=== PATIENT | female | born 2000 | race Caucasian/White ===

== ENCOUNTER 2019-08-10 19:28 | Emergency (ER) | payer SELFPAY ==
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
[2019-08-10 19:37] VITALS: BP 124/84; PULSE 91; RESP 16; TEMP 36.7; O2SAT 99; BMI 20.7
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
[2019-08-10 19:57] VITALS: PULSE 73; RESP 16; O2SAT 100
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
[2019-08-10 20:01] LABS: Basophils % 0.1 %; Eosinophils # 0.1 10^3/uL (0.0-0.8); Eosinophils % 0.7 %; Hematocrit 36.2 % (37.0-47.0); Hemoglobin 11.1 g/dL (11.5-15.3); Lymphocytes # 1.8 10^3/uL (1.5-6.5); Lymphocytes % 25.4 %; Mean Corpuscular HGB Conc 30.7 g/dL (30.0-36.0); Mean Corpuscular Hemoglobin 25.3 pg (28.0-34.0); Mean Corpuscular Volume 82.5 fL (81-99); Mean Platelet Volume 12.1 fL (7.4-10.4); Monocytes # 0.4 10^3/uL (0.2-0.9); Monocytes % 5.8 %; Neutrophils # 4.8 10^3/uL (1.8-8.0); Neutrophils % 67.7 %; Nucleated Red Blood Cells % 0 %; Platelet Count 312 10^3/cmm (130-400); Red Blood Count 4.39 10^6/uL (4.1-5.3); Red Cell Distribution Width 13.9 % (12.1-15.1); White Blood Count 7.1 10^3/uL (4.5-13.0)
[2019-08-10] MEDS: sodium chloride 0.9% 500 ML 999 ML IV (20:01)
[2019-08-10 20:11] LABS: HCG Qualitative Urine. Negative (Negative)
[2019-08-10 20:18] LABS: Alanine Aminotransferase 64 U/L (0-33); Albumin Level 4.9 g/dL (3.5-5.2); Alkaline Phosphatase 76 IU/L (35-105); Anion Gap 15.6 (5-19); Aspartate Amino Transferase 92 U/L (0-32); Blood Urea Nitrogen 8 mg/dL (6-20); Carbon Dioxide 24 mmol/L (22-29); Chloride 103 mmol/L (98-107); Globulin 2.5 g/dL (1.3-4.6); Glomerular Filtration Rate 106.7 mL/min (90-130); Glucose 108 mg/dL (74-109); Potassium 3.6 mmol/L (3.5-5.1); Sodium 139 mmol/L (136-145); Total Bilirubin 0.3 mg/dL (0.15-1.2); Total Protein 7.4 g/dL (6.6-8.7)
[2019-08-10] MEDS: iohexol 300 mg/mL 100 mL Btl 95 ML IV (21:14)
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
[2019-08-10 23:00] VITALS: BP 120/58; PULSE 79; RESP 15; O2SAT 97
[2019-08-11 09:05] LABS: Urine Appearance Clear (CLEAR); Urine Color Straw (Yellow)
[2019-08-11 09:06] LABS: Add Urine Microscopic? YES; Bilirubin Urine Neg (NEGATIVE); Blood Urine 2+ (Negative); Glucose Urine UA Norm (Normal); Ketones Urine Negative (Negative); Leukocyte Esterase Urine Negative (Negative); Nitrate Urine Negative (Negative); Protein Urine Neg (Negative); Urobilinogen Urine Norm (Negative)
[2019-08-11 09:12] LABS: Add Urine Culture? No; Bacteria Urine TRACE; RBC Urine 0-4 /hpf (0-2); Squamous Epithelial Cell Urine 0-4 (0-5)
--- NOTE | 2019-08-11 10:20 | DCPLANNER ---
manager of software development had message to schedule a follow up appointment for patient with Dr. Swan at [facility]. manager of software development called the clinic, spoke with Natasha, a follow up appointment was scheduled for today, Friday, August 11, 2019 at 3:15. Clinic will call patient with appointment information.
--- NOTE | 2019-08-11 10:22 | DCPLANNER ---
exhibits manager had message to schedule a follow up appointment for patient with ortho. exhibits manager called the ortho clinic, spoke with Pat, gave clinic patients information. exhibits manager was told that patients information would be printed and reviewed. Clinic will call case fitter and patient with appointment information.
--- NOTE | 2019-08-17 14:28 | DCPLANNER ---
Patient did attend the appointment scheduled for 08.11.19 with [facility].
--- NOTE | 2019-08-17 16:10 | DCPLANNER ---
airline manager spoke with Pat from ortho, was told that patient can follow up with primary care physician.
== END 2019-08-10 23:00 | disposition home or self-care (01) ==
PROVIDERS: Emergency Provider Emergency Medicine; Family Provider Pediatrics Adolescent Medicine; PCP Pediatrics Adolescent Medicine
DX: S80.10XA Contusion of unspecified lower leg, initial encounter (principal); V89.2XXA Person injured in unspecified motor-vehicle accident, traffic, initial encounter
CPT/HCPCS: 36415; 70450; 70486; 71260; 72125; 73590; 73600; 73610; 73620; 73630; 74177; 80053; 81003; 81025; 85025; 96360; 99283; E0114; J7040; Q9967

== ENCOUNTER 2019-11-06 23:21 | Emergency (ER) | payer OTHER, MEDICAID, SELFPAY ==
[2019-11-06 23:28] VITALS: BP 112/73; PULSE 71; RESP 16; TEMP 36.9; O2SAT 99; BMI 20.5
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
--- NOTE | 2019-11-06 23:47 | ED_ITS ---
HPI - Chest Pain General: Chief Complaint: Chest Pain Stated Complaint: CP/BACK PAIN Time Seen by Provider: 11/06/19 23:27 History of Present Illness: HPI narrative: Patient states that she has had chest pain center of her chest most of the day today it hurts to take in a deep breath it hurt from front to back hurts to touch and hurts to move. Denies nausea and vomiting gallbladder type symptoms denies any reflux. 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 She denies any fever or covid type symptoms. MD complaint: chest pain Onset (ago): hour(s) Timing of current episode: constant Prior episodes: No Pain location: substernal Pain radiation: back Quality: aching Relieving factors: remaining still Exacerbating factors: inspiration Associated symptoms: Reports no associated symptoms; Deny abdominal pain, dyspnea, fever(s), nausea or vomiting Review of Systems Const: Denies: fever, chills or body aches Eyes: Denies: change in vision or blurry vision ENMT: Denies: throat pain or nasal congestion Card: Reports: chest pain; Denies: shortness of breath on exertion Resp: Denies: shortness of breath, productive cough or non-productive cough GI: Denies: abdominal pain, nausea or vomiting Musc: Denies: extremity pain Skin/Breast: Denies: rash Neuro: Denies: headache Psych: Denies: anxiety or depression Alfonso/Lymph: Denies: easy bruising PFSH ED PFSH: Social History Smoking and tobacco status: never smoked Alcohol intake: never Desire information about substance/drug rehabilitation?: No (Reports history of marijuana use) Lives independently: Yes Household members: family Marital status: Single Current occupational status: unemployed History of recent travel: No Female Reproductive History: Date of last menstrual period: 11/07/19 Physical Exam Const: COMMON NORMALS: no apparent distress, average body habitus and oriented x3 HENMT: COMMON NORMALS: normocephalic HEAD & SCALP: normal to inspection and normocephalic FACE & SINUS: normal facial exam Eye: COMMON NORMALS: conjunctivae normal GENERAL EYE: normal appearance of both eyes CONJUNCTIVA: Yes conjunctivae normal Neck/C-Spine: COMMON NORMALS: no JVD Chest: COMMONS NORMALS: inspection of chest normal Resp: COMMON NORMALS: normal respiratory effort and clear to auscultation bilaterally AUSCULTATION: clear to auscultation bilaterally Cardio: COMMON NORMALS: no JVD, regular rate and regular rhythm RATE: regular rate RHYTHM: regular rhythm GI: COMMON NORMALS: normal to inspection, nondistended, normoactive bowel sounds Extremity: COMMON NORMALS: normal to inspection and full ROM Neuro: COMMON NORMALS: oriented x3 Course Vital Signs: Vital signs: Vital Signs Temperature 98.5 F 11/06/19 23:28 Pulse Rate 71 11/06/19 23:28 Respiratory Rate 16 11/06/19 23:28 Blood Pressure 112/73 11/06/19 23:28 Pulse Oximetry 99 11/06/19 23:28 MDM - Chest Pain EKG Data^: EKG 1: EKG interpretation date: 11/06/19 EKG interpretation time: 23:48 Interpretation: Sinus rhythm 68 bpm CO intervals 143 ms QRS durations [address] segments look appropriate Discharge Plan Discharge Patient Disposition: Home, Self-Care Clinical Impression: Acute costochondritis Condition: Stable Prescriptions: No Action No Known Home Medications RF: 0 Referrals: Brandie Rasheed MD [Primary Care Provider] - Discharge Diet: Usual diet Discharge Activity: Increase activity as tolerated Stand Alone Forms: Work/School Release Coding Level of Care Code ED 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
[2019-11-07 00:48] VITALS: BP 116/68; PULSE 79; RESP 18; O2SAT 99
--- NOTE | 2019-11-07 00:55 | W.ED.CHESTPA ---
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 Has not tried any [id number] medicines today Pain location: substernal Quality: aching Relieving factors: remaining still Exacerbating factors: inspiration Associated symptoms: Deny abdominal pain, dyspnea, fever(s), nausea or vomiting Review of Systems Const: Denies: fever, chills or body aches Eyes: Denies: change in vision or blurry vision ENMT: Denies: throat pain or nasal congestion Card: Reports: chest pain (Hurts with deep inspiration midsternal hurts to the back with inspiration); Denies: shortness of breath on exertion Resp: Denies: shortness of breath, productive cough or non-productive cough GI: Denies: abdominal pain, nausea or vomiting Musc: Denies: extremity pain Skin/Breast: Denies: rash Neuro: Denies: headache Psych: Denies: anxiety or depression Alfonso/Lymph: Denies: easy bruising PFSH ED PFSH: Social History Smoking and tobacco status: never smoked Alcohol intake: never Desire information about substance/drug rehabilitation?: No (Reports history of marijuana use) Lives independently: Yes Household members: family Marital status: Single Current occupational status: unemployed History of recent travel: No Female Reproductive History: Date of last menstrual period: 11/07/19 Physical Exam Const: COMMON NORMALS: no apparent distress, average body habitus and oriented x3 HENMT: COMMON NORMALS: normocephalic HEAD & SCALP: normal to inspection and normocephalic FACE & SINUS: normal facial exam Eye: COMMON NORMALS: conjunctivae normal GENERAL EYE: normal appearance of both eyes CONJUNCTIVA: Yes conjunctivae normal Neck/C-Spine: COMMON NORMALS: no JVD Chest: COMMONS NORMALS: inspection of chest normal; negative for palpation of chest normal (Patient has costochondritis type tenderness across midsternal area radiating out tender with palpation no swelling no no bruising breath sounds are normal no pain in the back) Resp: COMMON NORMALS: normal respiratory effort and clear to auscultation bilaterally AUSCULTATION: clear to auscultation bilaterally Cardio: COMMON NORMALS: no JVD, regular rate and regular rhythm RATE: regular rate RHYTHM: regular rhythm GI: COMMON NORMALS: normal to inspection, nondistended, normoactive bowel sounds and soft to palpation INSPECTION: Yes normal to inspection AUSCULTATION: Yes normoactive bowel sounds PALPATION: Yes soft, No tender and No guarding PERCUSSION: normal to percussion Extremity: COMMON NORMALS: normal to inspection and full ROM Neuro: COMMON NORMALS: oriented x3 Course Vital Signs: Vital signs: Vital Signs Temperature 98.5 F 11/06/19 23:28 Pulse Rate 79 11/07/19 00:48 Respiratory Rate 18 11/07/19 00:48 Blood Pressure 116/68 11/07/19 00:48 Pulse Oximetry 99 11/07/19 00:48 Discharge Plan Discharge Patient Disposition: Home, Self-Care Clinical Impression: Acute costochondritis Condition: Stable Prescriptions: No Action No Known Home Medications RF: 0 Discharge Orders: Discharge Order (Routine); Ordered 11/07/19 Ordered By: Maurizio Bolanos Referrals: Brandie Rasheed MD [Primary Care Provider] - Discharge Diet: Usual diet Discharge Activity: Increase activity as tolerated Patient Instructions: Costochondritis (ED) Activity Restrictions/Additional Instructions: Follow-up with medical provider as directed. Take [id number] ibuprofen as directed. Return to the ER or your medical provider if condition worsens. Please read and understand discharge instructions. If any questions ask please. They off work at least 2 days. 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
== END 2019-11-07 00:49 | disposition home or self-care (01) ==
PROVIDERS: Emergency Provider Nurse Practitioner Family; Family Provider Pediatrics Adolescent Medicine; PCP Pediatrics Adolescent Medicine
DX: M94.0 Chondrocostal junction syndrome [Tietze] (principal)
CPT/HCPCS: 12345; 71045; 99281; 99283

== ENCOUNTER 2020-01-18 09:47 | Outpatient (CLI) | payer OTHER, SELFPAY ==
[2020-01-18 10:24] LABS: HCG, Serum Qual Positive (Negative)
== END 2020-01-18 09:48 | disposition home or self-care (01) ==
LOC: LAB 09:52
PROVIDERS: PCP Pediatrics Adolescent Medicine; Visit Provider Pediatrics Adolescent Medicine
DX: Z32.01 Encounter for pregnancy test, result positive (principal)
CPT/HCPCS: 81025; 84703

== ENCOUNTER 2020-09-12 10:29 | Emergency (ER) | payer MEDICAID, SELFPAY ==
[2020-09-12 10:54] VITALS: BP 103/68; PULSE 108; RESP 16; TEMP 36.8; O2SAT 98; BMI 19.7
[2020-09-12 11:00] VITALS: BP 105/62; PULSE 86; RESP 16; O2SAT 98
--- NOTE | 2020-09-12 11:03 | US_ITS ---
WS: [id number] EARLY OBSTETRICAL ULTRASOUND (<14 WEEKS). HISTORY: ; bleeding; cramping COMPARISON: None available. Single intrauterine gestational sac is identified. Within the gestational sac is abnormal yolk sac wh ich is enlarged measuring 6 mm. There is also a crown-rump length with no cardiac activity. [place]-rum p length is displaced from the yolk sac. [place]-rump length corresponds to a gestation of 6 weeks 6 days. Mean gestational sac diameter of 2.9 cm corresponds to a gestation of 8 weeks and 2 days. Uterus is retroverted. Normal size LEFT ovary with small follicles. Hypoechoic area with increased peripheral vascularity wi thin the RIGHT ovary is probably corpus luteum. US/US OB <=14 wk fetus w transvag IMPRESSION: 1. Intrauterine gestational sac contains a slightly enlarged yolk sac and a fe rigoberto pole. There is no cardiac activity identified. [place]-rump length correspond s to gestation of 6 weeks and 6 days. Favor this is probably an embryonic demis e. For confirmation short-term follow-up ultrasound can be obtained. 2. Gestational sac size and crown-rump length are discordant.
--- NOTE | 2020-09-12 11:03 | ED_ITS ---
HPI - Female Genitourinary General: Chief complaint: Vaginal Bleeding Stated complaint: ABD pain Time Seen by Provider: 09/12/20 10:54 Source: patient and family Mode of arrival: ambulatory Limitations: no limitations History of Present Illness: HPI Narrative: Patient is a 20-year-old female who presents to ED today with a complaint of pelvic cramping, abdominal pain and vaginal bleeding that began approximately 4 days ago. Patient tells me she believes she is currently approximately 7 weeks . She has had positive home tests. has never been confirmed in a provider office. She states cramping has slowly worsened since onset and is now complaining of allover abdominal pain. She quantifies bleeding as taking several hours to soak a pad. She is not having any other vaginal discharge or itching. LMP was near the end of June. This would make patient a . Patient does not complain of any urinary symptoms. She reports some mild constipation. She has not been running fevers. MD elicited complaint: vaginal bleeding, pelvic pain and possible miscarriage Onset (ago): day(s) Severity: severe Severity scale (1-10): 9 Quality of pain: cramping Consistency: constant Vaginal discharge: none Vaginal bleeding: moderate and clots Exacerbating factors: none Relieving factors: none Associated symptoms: Reports abdominal pain and nausea; Deny headache(s) or vaginal discharge Patient : Yes Possible : at home test positive Date of Last Menstrual Period: 07/19/20 Review of Systems Const: Denies: fever(s), chills, body aches, fatigue or malaise Eyes: Denies: change in vision Card: Denies: chest pain Resp: Denies: dyspnea GI: Reports: abdominal pain, nausea and constipation; Denies: vomiting, heartburn, hematochezia or melena : Reports: vaginal bleeding and pelvic pain; Denies: flank pain, difficulty voiding, dysuria, urinary frequency, urinary urgency, urinary hesitancy, genital lesions, genital pruritis, vaginal odor or vaginal discharge Musc: Denies: neck pain or back pain Skin/Breast: Denies: rash Neuro: Denies: headache(s) PFS ED PFSH: Medical History (Updated 09/12/20 @ 13:52 by SANTINO Fontana) Patient denies medical problems Denies history of: hypertension, diabetes, heart, lung, liver, kidney, thyroid, bleeding problems, clotting problems, or genital herpes Surgical History No history of previous surgery Family History Father Hypertension Grandfather Diabetes Maternal Hyperlipidemia maternal Grandmother Diabetes Paternal Stroke Maternal great grandmother Breast cancer Maternal great grandmother Ovarian cancer maternal great grandmother Uterine cancer maternal great grandmother Colon cancer maternal Family/Other Diabetes Paternal aunt Denies family history of Heart disease Thyroid condition Social History Smoking and tobacco status: never smoked Alcohol intake: never Desire information about substance/drug rehabilitation?: No (Reports history of marijuana use) Lives independently: Yes Household members: family Marital status: Single Current occupational status: unemployed History of recent travel: No Female Reproductive History: Date of last menstrual period: 07/19/20 Physical Exam Const: COMMON NORMALS: no acute distress, average body habitus, patient oriented x3, no limitations, healthy appearing, alert and well nourished GENERAL APPEARANCE: cooperative ORIENTATION/CONSCIOUSNESS: Yes awake, Yes oriented to person, Yes oriented to place and Yes oriented to time HENMT: COMMON NORMALS: normocephalic and atraumatic HEAD & SCALP: normocephalic and atraumatic Resp: COMMON NORMALS: normal respiratory effort and clear to auscultation bilaterally AUSCULTATION: clear to auscultation bilaterally Cardio: COMMON NORMALS: regular rate and regular rhythm RATE: regular rate RHYTHM: regular rhythm GI: COMMON NORMALS: Normal to inspection, nondistended, normoactive bowel sounds present, Soft to palpation, No hepatosplenomegaly present and no masses PALPATION: Yes Soft to palpation, Yes Tenderness to palpation present (GI) (reports pain throughout abdomen but mostly to lower pelvis ), Yes Guarding due to palpation present (GI) and Yes No hepatosplenomegaly present : COMMON NORMALS: Yes no CVA tenderness, Yes normal external appearance, Yes normal appearance of the vagina and Yes normal appearance of the cervix BLADDER/KIDNEY EXAM: Yes no CVA tenderness SPECULUM EXAM - VAGINA: No tissue present in vagina and Yes other (small amount of dark red blood in vaginal vault ) SPECULUM EXAM - CERVIX: Yes Cervical os closed OB/EXTERNAL & SPECULUM: no tissue noted in vagina Back/Pelvis: COMMON NORMALS: no CVA tenderness Extremity: COMMON NORMALS: normal to inspection Neuro: JATIN COMA SCALE: document GCS findings Jatin coma scale eye opening: Spontaneous [place] coma scale verbal response: Orientated Jatin coma scale motor response: Obey commands [place] coma scale total score: 15 COMMON NORMALS: patient oriented x3 and gait normal SENSORIUM/ORIENTATION: Yes alert, Yes oriented to person, Yes oriented to place and Yes oriented to time Skin: COMMON NORMALS: no rashes or lesions noted GENERAL SKIN EXAM: no rashes or lesions noted Course Vital Signs: Vital signs: Vital Signs Temperature 98.2 F 09/12/20 10:54 Pulse Rate 86 09/12/20 11:00 Respiratory Rate 16 09/12/20 11:00 Blood Pressure 105/62 09/12/20 11:00 Pulse Oximetry 98 09/12/20 11:00 MDM - Female MDM Narrative: Medical decision making narrative: Patient's ultrasound shows abnormality between a gestational sac and crown rump length measurements. There is no heart rate. Findings are most likely consistent with demise. Patient is hemodynamically stable. Information placed with case management to get patient set up with [facility] for follow-up. Wet prep is negative. Chlamydia/gonorrhea cultures obtained and pending. Patient is Rh+. Lab Data: Labs: Lab Results 09/12/20 09/12/20 09/12/20 Range/Units 11:35 11:35 11:35 WBC 7.9 (4.0-10.0) 10^3/ uL RBC 4.41 (4.1-5.3) 10^6/u L Hgb 12.3 (11.5-15.3) g/dL Hct 38.4 (37.0-47.0) % MCV 87.1 (81-99) fL MCH 27.9 L (28.0-34.0) pg MCHC 32.0 (30.0-36.0) g/dL RDW 13.1 (12.1-15.1) % Plt Count 240 (130-400) 10^3/c mm MPV 11.8 H (7.4-10.4) fL Neut % (Auto) 71.3 % Lymph % (Auto) 20.9 % [place] % (Auto) 7.0 % Eos % (Auto) 0.3 % Baso % (Auto) 0.4 % Neut # (Auto) 5.64 (1.8-7.7) 10^3/u L Lymph # (Auto) 1.7 (0.8-4.8) 10^3/u L [place] # (Auto) 0.6 (0.2-0.9) 10^3/u L Eos # (Auto) 0.0 (0.0-0.8) 10^3/u L Baso # (Auto) 0.0 (0.0-0.1) 10^3/u L Nucleated RBC % (a uto) 0 % Nucleated RBCs # 0.0 /100WBC Sodium 134 L (136-145) mmol/L Potassium 3.8 (3.5-5.1) mmol/L Chloride 100 (98-107) mmol/L Carbon Dioxide 25 (22-29) mmol/L Anion Gap 12.8 (5-19) BUN 5 L (6-20) mg/dL Creatinine 0.5 (0.5-0.9) mg/dL GFR Calculation 155.7 H (90-130) mL/min Glucose 83 (65-115) mg/dL Calculated Osmolal ity 274 L (285-295) mOsm/k g Calcium 9.5 (8.5-10.5) mg/dL Total Bilirubin 0.7 (0.15-1.2) mg/dL AST 10 (0-32) U/L ALT 6 (0-33) U/L Alkaline Phosphata se 50 (35-105) IU/L Total Protein 7.7 (6.6-8.7) g/dL Albumin 4.6 (3.5-5.2) g/dL Globulin 3.1 (1.3-4.6) g/dL Lipase 27 (13-60) U/L Ser , [place] 34794.00 mIU/mL Urine Color (Yellow) Urine Appearance (CLEAR) Urine pH (5-7) Ur Specific Gravit y (1.005-1.030) Urine Protein (Negative) Urine Glucose (UA) (Normal) Urine Ketones (Negative) Urine Blood (Negative) Urine Nitrate (Negative) Urine Bilirubin (Negative) Urine Urobilinogen (Negative) mg/dL Ur Leukocyte Susana ase (Negative) Urine RBC (0-2) /hpf Urine WBC (0-5) /hpf Ur Squamous Epith Cells (0-5) /hpf Amorphous Sediment Urine Bacteria (NONE) /hpf Blood Type Rho(D) Type 09/12/20 09/12/20 Range/Units 11:35 11:45 WBC (4.0-10.0) 10^3/ uL RBC (4.1-5.3) 10^6/u L Hgb (11.5-15.3) g/dL Hct (37.0-47.0) % MCV (81-99) fL MCH (28.0-34.0) pg MCHC (30.0-36.0) g/dL RDW (12.1-15.1) % Plt Count (130-400) 10^3/c mm MPV (7.4-10.4) fL Neut % (Auto) % Lymph % (Auto) % [place] % (Auto) % Eos % (Auto) % Baso % (Auto) % Neut # (Auto) (1.8-7.7) 10^3/u L Lymph # (Auto) (0.8-4.8) 10^3/u L [place] # (Auto) (0.2-0.9) 10^3/u L Eos # (Auto) (0.0-0.8) 10^3/u L Baso # (Auto) (0.0-0.1) 10^3/u L Nucleated RBC % (a uto) % Nucleated RBCs # /100WBC Sodium (136-145) mmol/L Potassium (3.5-5.1) mmol/L Chloride (98-107) mmol/L Carbon Dioxide (22-29) mmol/L Anion Gap (5-19) BUN (6-20) mg/dL Creatinine (0.5-0.9) mg/dL GFR Calculation (90-130) mL/min Glucose (65-115) mg/dL Calculated Osmolal ity (285-295) mOsm/k g Calcium (8.5-10.5) mg/dL Total Bilirubin (0.15-1.2) mg/dL AST (0-32) U/L ALT (0-33) U/L Alkaline Phosphata se (35-105) IU/L Total Protein (6.6-8.7) g/dL Albumin (3.5-5.2) g/dL Globulin (1.3-4.6) g/dL Lipase (13-60) U/L Ser , Hoang i-Qnt mIU/mL Urine Color Yellow (Yellow) Urine Appearance Clear (CLEAR) Urine pH 5 (5-7) Ur Specific Gravit y 1.020 (1.005-1.030) Urine Protein Trace (Negative) Urine Glucose (UA) Norm (Normal) Urine Ketones Negative (Negative) Urine Blood Neg (Negative) Urine Nitrate Negative (Negative) Urine Bilirubin 1+ H (Negative) Urine Urobilinogen 1 H (Negative) mg/dL Ur Leukocyte Susana ase Negative (Negative) Urine RBC 0-4 H (0-2) /hpf Urine WBC 0-4 H (0-5) /hpf Ur Squamous Epith Cells 5-10 H (0-5) /hpf Amorphous Sediment Not Reportable Urine Bacteria Trace (NONE) /hpf Blood Type A Positive Rho(D) Type Positive Imaging Data: US OB: Radiologist's impression: [address] [id number] Ultrasound Report Signed Patient: Rachel Gonzalez Unit #: [id number] : 2000 Age/Sex: 20 / F ADM Date: 09/12/20 Loc: ER Room/Bed: Attending Dr: Ordering Provider/Ordering MD: Lien Burger Date of Service: 09/12/20 Procedure(s): US OB <=14 wk fetus w transvag Accession Number(s): [id number] Report Number: [id number] WS: [id number] EARLY OBSTETRICAL ULTRASOUND (<14 WEEKS). HISTORY: ; bleeding; cramping COMPARISON: None available. Single intrauterine gestational sac is identified. Within the gestational sac is abnormal yolk sac which is enlarged measuring 6 mm. There is also a crown-rump length with no cardiac activity. [place]- rump length is displaced from the yolk sac. [place]-rump length corresponds to a gestation of 6 weeks 6 days. Mean gestational sac diameter of 2.9 cm corresponds to a gestation of 8 weeks and 2 days. Uterus is retroverted. Normal size LEFT ovary with small follicles. Hypoechoic area with increased peripheral vascularity within the RIGHT ovary is probably corpus luteum. US/US OB <=14 wk fetus w transvag IMPRESSION: 1. Intrauterine gestational sac contains a slightly enlarged yolk sac and a pole. There is no cardiac activity identified. [place]-rump length corresponds to gestation of 6 weeks and 6 days. Favor this is probably an embryonic demise. For confirmation short-term follow-up ultrasound can be obtained. 2. Gestational sac size and crown-rump length are discordant. Dictated By: Nitza Rodriguez DO Signed By: Nitza Rodriguez DO Signed Date/Time: 09/12/20 1301 DD/ 1257 Discharge Plan Discharge Patient Disposition: Home Clinical Impression: Incomplete Condition: Stable Prescriptions: No Action No Known Home Medications RF: 0 Discharge Orders: Discharge ED (Routine); Ordered 09/12/20 Ordered By: Lien Burger Referrals: Brandie Rasheed MD [Primary Care Provider] - Patient Instructions: Spontaneous Miscarriage (ED), Opioid Safety Activity Restrictions/Additional Instructions: [facility] is committed to fighting the nationwide opiate epidemic. We are providing ALL patients with information regarding opiate safety. If you received opiate pain medication during your stay or if you received a pr escription for opiate pain medication-please review this handout. If not, you may disregard. Thank you. As discussed I will place her information with case management who should contact you shortly to set you up with an appointment for women's health for further management. You need to return to the emergency department for severe bleeding (completely soaking more than a pad an hour), severe abdominal pain, fevers, or any other concerns you may have. Coding Level of Care Code ED Medicinal Chemist for Nafisa Fwrossana Exam Comprehensive
[2020-09-12 12:04] LABS: Basophils % 0.4 %; Eosinophils % 0.3 %; Hematocrit 38.4 % (37.0-47.0); Hemoglobin 12.3 g/dL (11.5-15.3); Lymphocytes # 1.7 10^3/uL (0.8-4.8); Lymphocytes % 20.9 %; Mean Corpuscular Hemoglobin 27.9 pg (28.0-34.0); Mean Corpuscular Volume 87.1 fL (81-99); Mean Platelet Volume 11.8 fL (7.4-10.4); Monocytes # 0.6 10^3/uL (0.2-0.9); Neutrophils # 5.64 10^3/uL (1.8-7.7); Neutrophils % 71.3 %; Nucleated Red Blood Cells % 0 %; Platelet Count 240 10^3/cmm (130-400); Red Blood Count 4.41 10^6/uL (4.1-5.3); Red Cell Distribution Width 13.1 % (12.1-15.1); White Blood Count 7.9 10^3/uL (4.0-10.0)
[2020-09-12 12:08] LABS: Protein Urine Trace (Negative); Urine Appearance Clear (CLEAR); Urine Color Yellow (Yellow); pH Urine 5 (5-7)
[2020-09-12 12:09] LABS: Add Urine Microscopic? YES; Bilirubin Urine 1+ (Negative); Blood Urine Neg (Negative); Glucose Urine UA Norm (Normal); Ketones Urine Negative (Negative); Leukocyte Esterase Urine Negative (Negative); Nitrate Urine Negative (Negative); Urobilinogen Urine 1 mg/dL (Negative)
[2020-09-12 12:14] LABS: Add Urine Culture? No; Bacteria Urine TRACE /hpf; RBC Urine 0-4 /hpf (0-2); WBC Urine 0-4 /hpf (0-5)
[2020-09-12 12:15] LABS: Alanine Aminotransferase 6 U/L (0-33); Albumin Level 4.6 g/dL (3.5-5.2); Alkaline Phosphatase 50 IU/L (35-105); Anion Gap 12.8 (5-19); Aspartate Amino Transferase 10 U/L (0-32); Blood Urea Nitrogen 5 mg/dL (6-20); Calcium 9.5 mg/dL (8.5-10.5); Carbon Dioxide 25 mmol/L (22-29); Chloride 100 mmol/L (98-107); Creatinine Clr Calc Pharmacy 150.8405; Globulin 3.1 g/dL (1.3-4.6); Glomerular Filtration Rate 155.7 mL/min (90-130); Glucose 83 mg/dL (65-115); Lipase 27 U/L (13-60); Osmolality Calculated 274 mOsm/kg (285-295); Potassium 3.8 mmol/L (3.5-5.1); Sodium 134 mmol/L (136-145); Total Bilirubin 0.7 mg/dL (0.15-1.2); Total Protein 7.7 g/dL (6.6-8.7)
--- NOTE | 2020-09-13 08:25 | DCPLANNER ---
signal manager received message to schedule appointment with Women's Health. signal manager called [facility] and spoke to Yeny, who took down patient's information. She will be contacting patient with appointment information.
--- NOTE | 2020-09-22 15:41 | DCPLANNER ---
Patient had a follow up appointment scheduled for 09.22.20 with Women's health - patient did attend appointment.
== END 2020-09-12 14:11 | disposition home or self-care (01) ==
PROVIDERS: Family Medicine; Emergency Provider Physician Assistant; PCP Pediatrics Adolescent Medicine
DX: O03.4 Incomplete spontaneous abortion without complication (principal)
CPT/HCPCS: 36415; 76801; 76817; 80053; 81001; 83690; 84702; 85025; 86900; 87210; 87491; 87591; 99283

== ENCOUNTER 2020-09-17 00:53 | Emergency (ER) | payer MEDICAID, SELFPAY ==
[2020-09-17 00:58] VITALS: BP 122/78; PULSE 95; RESP 16; TEMP 36.3; O2SAT 99; BMI 19.7
[2020-09-17 01:05] VITALS: BP 109/68; PULSE 85; RESP 16; O2SAT 98
[2020-09-17 01:33] VITALS: BP 106/68; PULSE 99; RESP 16; O2SAT 98
[2020-09-17] MEDS: sodium chloride 0.9% 1,000 ML 999 ML IV (01:39)
[2020-09-17 01:49] LABS: Basophils % 0.4 %; Eosinophils # 0.1 10^3/uL (0.0-0.8); Eosinophils % 1.2 %; Hematocrit 33.6 % (37.0-47.0); Hemoglobin 10.8 g/dL (11.5-15.3); Lymphocytes # 1.6 10^3/uL (0.8-4.8); Lymphocytes % 23.8 %; Mean Corpuscular HGB Conc 32.1 g/dL (30.0-36.0); Mean Corpuscular Hemoglobin 27.4 pg (28.0-34.0); Mean Corpuscular Volume 85.3 fL (81-99); Mean Platelet Volume 11.6 fL (7.4-10.4); Monocytes # 0.4 10^3/uL (0.2-0.9); Monocytes % 6.1 %; Neutrophils # 4.62 10^3/uL (1.8-7.7); Neutrophils % 68.2 %; Nucleated Red Blood Cells % 0 %; Platelet Count 240 10^3/cmm (130-400); Red Blood Count 3.94 10^6/uL (4.1-5.3); Red Cell Distribution Width 12.8 % (12.1-15.1); White Blood Count 6.8 10^3/uL (4.0-10.0)
[2020-09-17 02:18] LABS: Alanine Aminotransferase 7 U/L (0-33); Albumin Level 4.2 g/dL (3.5-5.2); Alkaline Phosphatase 58 IU/L (35-105); Anion Gap 13.9 (5-19); Aspartate Amino Transferase 11 U/L (0-32); Blood Urea Nitrogen 10 mg/dL (6-20); Calcium 8.8 mg/dL (8.5-10.5); Carbon Dioxide 24 mmol/L (22-29); Chloride 100 mmol/L (98-107); Creatinine Clr Calc Pharmacy 150.8405; Glomerular Filtration Rate 155.7 mL/min (90-130); Glucose 89 mg/dL (65-115); Osmolality Calculated 277 mOsm/kg (285-295); Potassium 3.9 mmol/L (3.5-5.1); Sodium 134 mmol/L (136-145); Total Bilirubin 0.3 mg/dL (0.15-1.2); Total Protein 7.2 g/dL (6.6-8.7)
[2020-09-17 02:49] LABS: Add Urine Microscopic? YES; Bilirubin Urine Neg (Negative); Glucose Urine UA Norm (Normal); Ketones Urine Negative (Negative); Leukocyte Esterase Urine Negative (Negative); Nitrate Urine Negative (Negative); Protein Urine Neg (Negative); Specific Gravity, Urine 1.015 (1.005-1.030); Urine Color Yellow (Yellow); Urobilinogen Urine 1 mg/dL (Negative); pH Urine 6 (5-7)
[2020-09-17 02:50] LABS: Blood Urine 3+ (Negative)
[2020-09-17 02:52] LABS: Add Urine Culture? No; Bacteria Urine TRACE /hpf; Mucus Urine 1+ /hpf; RBC Urine >100 /hpf (0-2); Squamous Epithelial Cell Urine 15-25 /hpf (0-5); WBC Urine 0-4 /hpf (0-5)
[2020-09-17 03:47] VITALS: BP 104/67; PULSE 82; RESP 16; TEMP 36.6; O2SAT 100
--- NOTE | 2020-09-17 04:19 | W.ED.FEMALGU ---
HPI - Female Genitourinary General: Chief complaint: Vaginal Bleeding Stated complaint: excessive vaginal bleeding post miscarriage Time Seen by Provider: 09/17/20 01:05 History of Present Illness: HPI Narrative: 20-year-old diagnosed with incomplete a couple of days ago. She presents with continued uterine cramping, pelvic pain, and feeling generally weak. No syncopal episodes. She feels as if she is lost too much blood. No fever. No vomiting. MD elicited complaint: vaginal bleeding and pelvic pain Onset (ago): hour(s) Location of symptoms: vaginal and pelvis Quality of pain: cramping and sharp Consistency: constant Vaginal discharge: none Vaginal bleeding: heavy, dark red and clots Urinary symptoms: Urgency Relieving factors: none Associated symptoms: Reports nausea and vaginal bleeding; Deny abdominal pain, short of breath or fevers/chills Date of Last Menstrual Period: 07/19/20 Review of Systems Const: Reports: fatigue; Denies: fever(s) or chills Card: Denies: chest pain, palpitations or irregular heart rhythm Resp: Denies: dyspnea, productive cough, non-productive cough or wheezing GI: Reports: nausea; Denies: abdominal pain PFS ED PFSH: Medical History (Updated 09/17/20 @ 03:09 by Steve Yanes DO) Patient denies medical problems Denies history of: hypertension, diabetes, heart, lung, liver, kidney, thyroid, bleeding problems, clotting problems, or genital herpes Surgical History No history of previous surgery Family History Father Hypertension Grandfather Diabetes Maternal Hyperlipidemia maternal Grandmother Diabetes Paternal Stroke Maternal great grandmother Breast cancer Maternal great grandmother Ovarian cancer maternal great grandmother Uterine cancer maternal great grandmother Colon cancer maternal Family/Other Diabetes Paternal aunt Denies family history of Heart disease Thyroid condition Social History Smoking and tobacco status: never smoked Alcohol intake: never Desire information about substance/drug rehabilitation?: No (Reports history of marijuana use) Lives independently: Yes Household members: family Marital status: Single Current occupational status: unemployed History of recent travel: No Female Reproductive History: Date of last menstrual period: 07/19/20 Physical Exam Const: GENERAL APPEARANCE: well developed ORIENTATION/CONSCIOUSNESS: Yes oriented to person, Yes oriented to place and Yes oriented to time HENMT: COMMON NORMALS: normocephalic, external ears normal and Normal external nose present HEAD & SCALP: normocephalic FACE & SINUS: normal facial exam NOSE: Normal external nose present and No nasal discharge present EXTERNAL EAR: Yes external ears normal Eye: COMMON NORMALS: Equal, round and reactive pupils present, EOMs intact bilaterally and conjunctivae normal EYELID: eyelids normal CONJUNCTIVA: Yes conjunctivae normal PUPIL: Yes Equal, round and reactive pupils present Neck/C-Spine: COMMON NORMALS: full ROM GENERAL: No tracheal deviation CERVICAL SPINE: Yes normal cervical lordosis and No Cervical spine tenderness Chest: COMMONS NORMALS: normal inspection of the chest CHEST: No tenderness Resp: COMMON NORMALS: clear to auscultation bilaterally EFFORT & INSPECTION: No tachypneic, No respiratory distress, No retractions, No uses accessory muscles and No tracheal deviation AUSCULTATION: clear to auscultation bilaterally, no rhonchi, no wheezes and lung sounds not diminished Cardio: COMMON NORMALS: regular rate and regular rhythm RATE: regular rate RHYTHM: regular rhythm HEART SOUNDS: no murmurs PERIPHERAL PULSES: radial pulses present GI: INSPECTION: No abdominal distension AUSCULTATION: No Hyperactive bowel sounds present and No Hypoactive bowel sounds present PALPATION: No Guarding due to palpation present (GI) and No Rigid due to palpation PERCUSSION: no dullness to percussion and no tympanic to percussion : SPECULUM EXAM - VAGINA: Yes vaginal bleeding SPECULUM EXAM - CERVIX: No Cervical os open OB/EXTERNAL & SPECULUM: vaginal bleeding; No Cervical os open and vaginal discharge Neuro: SENSORIUM/ORIENTATION: Yes oriented to person, Yes oriented to place and Yes oriented to time Psych: COMMON NORMALS: mental status grossly normal Skin: COMMON NORMALS: no rashes or lesions noted GENERAL SKIN EXAM: no rashes or lesions noted Course Vital Signs: Vital signs: Vital Signs Temperature 97.9 F 09/17/20 03:47 Pulse Rate 82 09/17/20 03:47 Respiratory Rate 16 09/17/20 03:47 Blood Pressure 104/67 09/17/20 03:47 Pulse Oximetry 100 09/17/20 03:47 MDM - Female MDM Narrative: Medical decision making narrative: Low bleeding of dark red blood on exam. No tissue in the os, no clots. Serum quantitative hCG is down appropriately. Hemoglobin is still 11. She feels better after fluid infusion. She will continue to monitor at home. She is supposed to call Friday morning to follow-up with women's health, they called her on Friday but she missed the call. She will need to follow the quant down to 0. Lab Data: Labs: Lab Results 09/17/20 09/17/20 09/17/20 Range/Units 01:30 01:30 02:35 WBC 6.8 (4.0-10.0) 10^3/ uL RBC 3.94 L (4.1-5.3) 10^6/u L Hgb 10.8 L (11.5-15.3) g/dL Hct 33.6 L (37.0-47.0) % MCV 85.3 (81-99) fL MCH 27.4 L (28.0-34.0) pg MCHC 32.1 (30.0-36.0) g/dL RDW 12.8 (12.1-15.1) % Plt Count 240 (130-400) 10^3/c mm MPV 11.6 H (7.4-10.4) fL Neut % (Auto) 68.2 % Lymph % (Auto) 23.8 % [place] % (Auto) 6.1 % Eos % (Auto) 1.2 % Baso % (Auto) 0.4 % Neut # (Auto) 4.62 (1.8-7.7) 10^3/u L Lymph # (Auto) 1.6 (0.8-4.8) 10^3/u L [place] # (Auto) 0.4 (0.2-0.9) 10^3/u L Eos # (Auto) 0.1 (0.0-0.8) 10^3/u L Baso # (Auto) 0.0 (0.0-0.1) 10^3/u L Nucleated RBC % (a uto) 0 % Nucleated RBCs # 0.0 /100WBC Sodium 134 L (136-145) mmol/L Potassium 3.9 (3.5-5.1) mmol/L Chloride 100 (98-107) mmol/L Carbon Dioxide 24 (22-29) mmol/L Anion Gap 13.9 (5-19) BUN 10 (6-20) mg/dL Creatinine 0.5 (0.5-0.9) mg/dL GFR Calculation 155.7 H (90-130) mL/min Glucose 89 (65-115) mg/dL Calculated Osmolal ity 277 L (285-295) mOsm/k g Calcium 8.8 (8.5-10.5) mg/dL Total Bilirubin 0.3 (0.15-1.2) mg/dL AST 11 (0-32) U/L ALT 7 (0-33) U/L Alkaline Phosphata se 58 (35-105) IU/L Total Protein 7.2 (6.6-8.7) g/dL Albumin 4.2 (3.5-5.2) g/dL Globulin 3.0 (1.3-4.6) g/dL Ser , [place] 46636.00 mIU/mL Urine Color Yellow (Yellow) Urine Appearance Sl cloudy A (CLEAR) Urine pH 6 (5-7) Ur Specific Gravit y 1.015 (1.005-1.030) Urine Protein Neg (Negative) Urine Glucose (UA) Norm (Normal) Urine Ketones Negative (Negative) Urine Blood 3+ H (Negative) Urine Nitrate Negative (Negative) Urine Bilirubin Neg (Negative) Urine Urobilinogen 1 H (Negative) mg/dL Ur Leukocyte Susana ase Negative (Negative) Urine RBC >100 H (0-2) /hpf Urine WBC 0-4 H (0-5) /hpf Ur Squamous Epith Cells 15-25 H (0-5) /hpf Amorphous Sediment Not Reportable Urine Bacteria Trace (NONE) /hpf Urine Mucus 1+ /hpf Discharge Plan Discharge Patient Disposition: Home Clinical Impression: Complete ablepharon Condition: Stable Prescriptions: No Action No Known Home Medications RF: 0 Discharge Orders: Discharge ED (Routine); Ordered 09/17/20 Ordered By: Steve Yanes Referrals: Brandie Rasheed MD [Primary Care Provider] - Discharge Diet: Advance as tolerated Discharge Activity: Increase activity as tolerated Patient Instructions: Spontaneous Miscarriage (ED) Activity Restrictions/Additional Instructions: Return to the emergency department for worsening weakness or passing out, soaking 3 or more pads an hour for more than 3 to 4 hours, fever greater than 100, worsening pain, other concerning symptoms. Call the women's health clinic Friday for a follow-up appointment. Coding Level of Care Code ED Patient Care Nursing Assistant for Nafisa Watkins
== END 2020-09-17 03:47 | disposition home or self-care (01) ==
PROVIDERS: Emergency Provider Emergency Medicine; PCP Pediatrics Adolescent Medicine
DX: O03.9 Complete or unspecified spontaneous abortion without complication (principal)
CPT/HCPCS: 80053; 81001; 84702; 85025; 96360; 99283; J7030

== ENCOUNTER → 2020-09-22 12:08 | Outpatient (BNVA) | payer MEDICAID, SELFPAY | PROVIDERS: PCP Pediatrics Adolescent Medicine; Visit Provider Obstetrics & Gynecology | DX: O03.9 Complete or unspecified spontaneous abortion without complication (principal); Z30.016 Encounter for initial prescription of transdermal patch hormonal contraceptive device | CPT/HCPCS: 84702 ==

== ENCOUNTER → 2020-12-21 11:15 | Outpatient (BNVA) | payer MEDICAID, SELFPAY | PROVIDERS: Visit Provider Registered Nurse Neonatal Intensive Care | DX: J02.9 Acute pharyngitis, unspecified (principal); J02.0 Streptococcal pharyngitis | CPT/HCPCS: 87880 ==

== ENCOUNTER 2021-01-29 20:35 | Emergency (ER) | payer MEDICAID, SELFPAY ==
[2021-01-29 20:54] VITALS: BMI 19.4
--- NOTE | 2021-01-29 21:03 | XRR_ITS ---
PROCEDURE INFORMATION: Exam: XR Chest Exam date and time: 01/29/2021 9:03 PM Age: 20 years old Clinical indication: Cough TECHNIQUE: Imaging protocol: XR of the chest. Views: 1 view. COMPARISON: CR XR chest 1V portable [id number] 11/06/2019 11:49 PM FINDINGS: Lungs: Unremarkable. No consolidation. Pleural spaces: Unremarkable. No pleural effusion. No pneumothorax. Heart/Mediastinum: Unremarkable. No cardiomegaly. Bones/joints: Unremarkable. XR/XR chest 1V portable [id number] IMPRESSION: No acute findings.
--- NOTE | 2021-01-29 21:03 | W.ED.SOB ---
HPI - SOB/Dyspnea General: Chief Complaint: Shortness of Breath/Dyspnea Stated Complaint: SOB, H/A,coughing, chest congestion Time Seen by Provider: 01/29/21 21:00 History of Present Illness: HPI Narrative: This patient is a 20-year-old female who presents to the emergency department with cough congestion feels like she is little short of breath. Patient denies fever. Patient states her symptoms are mimicking her boyfriend who was seen earlier in the hospital today was diagnosed with a viral upper respiratory infection with negative Covid. Patient is concerned that she is get his sickness. Patient has nonspecific complaints. Patient also does not appear to be acutely sick. MD elicited complaint: cough Associated symptoms: Deny abdominal pain, chest pain, extremity pain, fever(s), lightheadedness, nausea, palpitations or vomiting Review of Systems General: Reports: 10 or more systems reviewed and unremarkable except in HPI and below Const: Denies: fever(s), chills, body aches or fatigue Eyes: Denies: change in vision or blurry vision ENMT: Denies: throat pain, hoarseness or mouth pain Card: Denies: chest pain, palpitations, irregular heart rhythm, edema, swelling of feet/ankles or lightheadedness Resp: Reports: dyspnea and non-productive cough; Denies: productive cough, wheezing or pain on inspiration GI: Denies: abdominal pain, nausea or vomiting : Denies: flank pain, difficulty voiding, dysuria, urinary frequency, urinary urgency or urinary hesitancy Musc: Denies: neck pain, back pain, extremity pain, extremity swelling, joint pain, joint swelling, joint redness, joint warmth or limited range of motion Skin/Breast: Denies: rash, pruritus, erythema or skin tenderness Neuro: Denies: headache(s), numbness in extremities or weakness in extremities Psych: Denies: anxiety or depression PFS ED PFSH: Medical History (Updated 01/29/21 @ 22:14 by Jann Fink MD) Patient denies medical problems Denies history of: hypertension, diabetes, heart, lung, liver, kidney, thyroid, bleeding problems, clotting problems, or genital herpes Surgical History No history of previous surgery Family History Father Hypertension Grandfather Diabetes Maternal Hyperlipidemia maternal Grandmother Diabetes Paternal Stroke Maternal great grandmother Breast cancer Maternal great grandmother Ovarian cancer maternal great grandmother Uterine cancer maternal great grandmother Colon cancer maternal Family/Other Diabetes Paternal aunt Social History Smoking and tobacco status: never smoked Alcohol intake: never Other details last substance use: Marijuana Lives independently: Yes Household members: family Marital status: Single Current occupational status: unemployed History of recent travel: No Female Reproductive History: Date of last menstrual period: 01/16/21 Physical Exam Const: COMMON NORMALS: no acute distress, average body habitus, patient oriented x3, no limitations, healthy appearing, alert and well nourished HENMT: COMMON NORMALS: normocephalic, atraumatic, hearing grossly normal bilaterally, external ears normal, EAC's normal, TM's normal bilaterally, Normal external nose present, Normal nasal mucous membranes and turbinates present, moist oral mucous membranes, oropharynx normal, dentition normal and gingiva normal HEAD & SCALP: normocephalic and atraumatic NOSE: Normal external nose present and Normal nasal mucous membranes and turbinates present EXTERNAL EAR: Yes external ears normal EXTERNAL AUDITORY CANAL: EAC's normal TYMPANIC MEMBRANE: TM's normal bilaterally Neck/C-Spine: COMMON NORMALS: full ROM, no lymphadenopathy, supple, no meningeal signs, no JVD, Thyroid normal and No carotid bruits THYROID: Thyroid normal Chest: COMMONS NORMALS: normal inspection of the chest, normal palpation of entire chest wall, normal inspection of the breasts and normal palpation of the breasts Breast/axilla inspection: Yes normal inspection of the breasts BREAST/AXILLA PALPATION: Yes normal palpation of the breasts Resp: COMMON NORMALS: normal respiratory effort, No retractions, No use of accessory muscles, clear to auscultation bilaterally and percussion normal AUSCULTATION: clear to auscultation bilaterally PERCUSSION: percussion normal Cardio: COMMON NORMALS: no JVD, regular rate, regular rhythm, S1 normal heart sound present, S2 normal heart sound present, No gallops present (Cardio), No clicks present (Cardio), No murmurs present (Cardio), No rub (Cardio) and Peripheral pulses 2+ throughout RATE: regular rate RHYTHM: regular rhythm HEART SOUNDS: S1 normal heart sound present and S2 normal heart sound present PERIPHERAL PULSES: Peripheral pulses 2+ throughout GI: COMMON NORMALS: Normal to inspection, nondistended, normoactive bowel sounds present, Soft to palpation, non-tender, No hepatosplenomegaly present, no masses and no bruits PALPATION: Yes Soft to palpation and Yes No hepatosplenomegaly present Back/Pelvis: COMMON NORMALS: thoracic and lumbar spine normal to inspection, no thoracic nor lumbar tenderness, thoraco-lumbar ROM normal and straight leg raise negative bilaterally Extremity: COMMON NORMALS: normal to inspection, full ROM, capillary refill normal, no joint enlargement, no clubbing, cyanosis or edema, no calf tenderness and no pedal edema Neuro: COMMON NORMALS: patient oriented x3 SENSORIUM/ORIENTATION: Yes alert MENINGEAL SIGNS: Yes no meningeal signs Course Reevaluation(s): Reevaluation #1: Negative evaluation in the emergency department any acute findings. Most likely viral upper respiratory infection consistent with significant others. Patient encouraged p.o. fluids is [id number] medications as needed and antihistamine for symptom relief. Follow-up with PCP in 2 to 3 days if not improved Tylenol Motrin or as needed as needed for fever. Time: 22:13 MDM - SOB/Dyspnea MDM Narrative: Medical decision making narrative: Patient encouraged p.o. fluids is [id number] medications as needed and antihistamine for symptom relief. Follow-up with PCP in 2 to 3 days if not improved Tylenol Motrin or as needed as needed for fever. Medical Records: Attestation: I reviewed the patient's medical records. Lab Data: Attestation: I reviewed the patient's lab results. Labs: Lab Results 01/29/21 Range/Units 21:19 SARS-CoV-2 Ag (Rap id) Negative (Negative) Discharge Plan Discharge Patient Disposition: Home Clinical Impression: Viral URI Condition: Stable Prescriptions: No Action Xulane 150-35 mcg/24 hr patch weekly 1 patch transdermal Q7D Qty: 3 RF: 12 amoxicillin 400 mg/5 mL suspension for reconstitution 500 mg PO BID 10 Days Qty: 125 RF: 0 Discharge Orders: Discharge ED (Routine); Ordered 01/29/21 Ordered By: Jann Fink Discharge Diet: Advance as tolerated Discharge Activity: Resume usual activity Patient Instructions: Opioid Safety Activity Restrictions/Additional Instructions: Patient encouraged p.o. fluids is [id number] medications as needed and antihistamine for symptom relief. Follow-up with PCP in 2 to 3 days if not improved Tylenol Motrin or as needed as needed for fever. Coding Level of Care Code ED Case Preparer And Liner for Nafisa Fwrossana Exam Comprehensive
[2021-01-29 21:47] LABS: SARS Covid-2 Antigen Negative (Negative)
== END 2021-01-29 22:33 | disposition home or self-care (01) ==
PROVIDERS: Emergency Provider Emergency Medicine
DX: J06.9 Acute upper respiratory infection, unspecified (principal); Z20.822 Contact with and (suspected) exposure to COVID-19
CPT/HCPCS: 71045; 87426; 99282

== ENCOUNTER → 2021-03-27 09:46 | Outpatient (BNVA) | payer MEDICAID, SELFPAY | PROVIDERS: Visit Provider Nurse Practitioner Women's Health | DX: N92.6 Irregular menstruation, unspecified (principal); Z87.59 Personal history of other complications of pregnancy, childbirth and the puerperium | CPT/HCPCS: 81025; 84702 ==

== ENCOUNTER 2021-04-08 16:05 | Emergency (ER) | payer MEDICAID, SELFPAY ==
[2021-04-08 16:27] VITALS: BP 97/65; PULSE 80; RESP 15; TEMP 36.9; O2SAT 97; BMI 19.4
--- NOTE | 2021-04-08 20:25 | W.ED.PREGNAN ---
HPI - General: Chief complaint: Vaginal Bleeding Stated complaint: 9 WKS PREG: SPOTTING Time Seen by Provider: 04/08/21 20:25 History of Present Illness: HPI Narrative: Ms. Gonzalez is a 20-year-old lady -0-2-1 who is currently approximately 9 weeks with LMP 02/05/2021 and positive test 03/16/2021 who presents the emergency department due to back pain and vaginal spotting. Symptom onset was 5 days ago and subacute. She endorses generalized lower abdominal mild discomfort and mild amount of spotting. She has not noticed any alvin fluid or tissue spots. She does not have significant pain associated with this with exception of back pain. Initially she had some dysuria however this is resolved. She denies other signs of systemic illness, no other specific provoking, exacerbating, or alleviating factors identified. Date of Last Menstrual Period: 02/05/21 Review of Systems General: Reports: 10 or more systems reviewed and unremarkable except in HPI and below Narrative: CONSTITUTIONAL: denies fever, fatigue, weakness EYES - denies pain, denies loss of vision EARS - denies ear issues. NOSE - denies congestion or rhinorrhea. THROAT - denies sore throat or difficulty swallowing. CARDIOVASCULAR - denies chest pain and palpitations RESPIRATORY - denies shortness of breath and cough GASTROINTESTINAL -see HPI GENITOURINARY -see HPI MUSCULOSKELETAL- denies deformity. See HPI SKIN - denies rashes or new changed skin lesions NEUROLOGIC - denies focal weakness or sensory changes HEMATOLOGIC/LYMPHATIC - denies easy bruising or lymphadenopathy. PENDING SALE TO [facility] ED PFSH: Medical History Patient denies medical problems Neghx: htn,dm,thryoid,dvt/pe PCP: none Surgical History No history of previous surgery Family History Father Hypertension Grandfather Diabetes Maternal Hyperlipidemia maternal Grandmother Diabetes Paternal Stroke Maternal great grandmother Breast cancer Maternal great grandmother--dx age unknown Ovarian cancer maternal great grandmother--dx age unknown Uterine cancer maternal great grandmother--dx age unknown Colon cancer maternal--dx age 60 Family/Other Diabetes Paternal aunt Female Reproductive History: Date of last menstrual period: 02/05/21 Physical Exam Narrative: EXAM NARRATIVE: GENERAL/CONSTITUTIONAL - well-appearing. No acute distress. Eyes - PERRL, no conjunctival injection ENMT - Atraumatic external nose and ears. Moist mucous membranes NECK - supple. trachea midline CARDIOVASCULAR - regular rate and rhythm. Peripheral pulses 2+ and equal RESPIRATORY -clear to auscultation bilaterally. No retractions or accessory muscle use. ABDOMEN/GI - Nontender/Nondistended. No tenderness to percussion or evidence of peritonitis PELVIC ? performed with systems test technician present. External structures unremarkable. There is mild white discharge in the vagina. No lacerations or abnormality otherwise appreciated in vaginal vault. Cervix identified without abnormality, cervical os visually closed. MSK - Extremities without obvious deformity or tenderness to palpation SKIN - Warm, Dry NEURO - alert and appropriately oriented. strength and sensation intact. Moves all extremities equally. PSYCH - Appropriate mood and affect Course ED course: - Patient was seen and evaluated by me at bedside - Patient placed on cardiac monitors, IV access obtained - Initial evaluation notable for no acute distress, nontoxic appearance. - Labs and imaging obtained and reviewed - Labs notable for no evidence of urinary tract infection. Wet prep positive for clue cells. Beta hCG is lower than prior. - Bedside ultrasound performed transabdominal, gestational sac is identified with tiny additional structure within the sac on the posterior wall which is possibly a pole, limited evaluation secondary to transabdominal approach and phased-array probe. A hypoechoic well-rounded nontender structure was noted in the right adnexa possibly a ovarian cyst. There is no internal debris or blood flow. No hyperemia around the rim of the structure. There is no evidence of free fluid in the posterior cul-de-sac or surrounding hyperemia/edema. - Upon serial reexamination after treatment the patient was improved - Based on patient history, evaluation, labs, and imaging as interpreted the most likely cause of the patient's condition is bacterial vaginosis though based on clinical history and laboratory/bedside ultrasound threatened miscarriage is not excluded. - The results of ED evaluation were discussed with the patient including prescriptions and/or symptomatic cares (if applicable) including appropriate and responsible use, followup plan, and return precautions. The patient verbalized understanding and felt safe for discharge. - Patient discharged in satisfactory condition. Vital Signs: Vital signs: Vital Signs Temperature 98.4 F 04/08/21 16:27 Pulse Rate 80 04/08/21 16:27 Respiratory Rate 15 04/08/21 16:27 Blood Pressure 107/64 04/08/21 22:39 Pulse Oximetry 97 04/08/21 16:27 MDM - OB/Uterine Contractions Medical Records: Attestation: I reviewed the patient's medical records. Lab Data: Attestation: I reviewed the patient's lab results. Labs: Lab Results 04/08/21 04/08/21 04/08/21 Range/Units 21:00 21:00 21:30 Ser , [place] [address].00 mIU/mL Urine Color Yellow (Yellow) Urine Appearance Clear (CLEAR) Urine pH 5 (5-7) Ur Specific Gravit y 1.020 (1.005-1.030) Urine Protein Neg (Negative) Urine Glucose (UA) Norm (Normal) Urine Ketones Negative (Negative) Urine Blood Neg (Negative) Urine Nitrate Negative (Negative) Urine Bilirubin Neg (Negative) Urine Urobilinogen Norm (Negative) mg/dL Ur Leukocyte Susana ase Negative (Negative) Blood Type A Positive Rho(D) Type Positive Discharge Plan Discharge Patient Disposition: Home Clinical Impression: Bacterial vaginosis in , Vaginal bleeding during , Back pain, Miscarriage, threatened, early Condition: Stable Prescriptions: New metronidazole 500 mg tablet 500 mg PO BID 7 Days Qty: 14 RF: 0 Discharge Orders: Discharge ED (Routine); Ordered 04/08/21 Ordered By: Lemuel Elder Discharge Diet: Usual diet Discharge Activity: Resume usual activity Patient Instructions: Bacterial Vaginosis (ED), Abdominal Pain in (ED) Activity Restrictions/Additional Instructions: Thank you for visiting the emergency department. You were seen and evaluated for vaginal bleeding during early in addition to back pain. You were found to have bacterial vaginosis which will be treated with antibiotics. Please follow-up with your journalism teacher. Please return to the emergency department for worsening symptoms or anything else that you are concerned about and feel needs emergency department evaluation. Coding Level of Care Code ED Ic Engineer for Nafisa Watkins
[2021-04-08 21:56] LABS: Add Urine Microscopic? NO; Charge for UA Resulting for Rev
[2021-04-08 22:02] LABS: Bilirubin Urine Neg (Negative); Blood Urine Neg (Negative); Glucose Urine UA Norm (Normal); Ketones Urine Negative (Negative); Leukocyte Esterase Urine Negative (Negative); Nitrate Urine Negative (Negative); Protein Urine Neg (Negative); Urine Appearance Clear (CLEAR); Urine Color Yellow (Yellow); Urobilinogen Urine Norm (Negative); pH Urine 5 (5-7)
[2021-04-08 22:39] VITALS: BP 107/64
== END 2021-04-08 22:40 | disposition home or self-care (01) ==
PROVIDERS: Emergency Medicine; Absent Provider Obstetrics & Gynecology; Emergency Provider Emergency Medicine
DX: O23.591 Infection of other part of genital tract in pregnancy, first trimester (principal); O46.91 Antepartum hemorrhage, unspecified, first trimester; O20.0 Threatened abortion; O26.891 Other specified pregnancy related conditions, first trimester; M54.9 Dorsalgia, unspecified; Z3A.09 9 weeks gestation of pregnancy
CPT/HCPCS: 81003; 84702; 86900; 87210; 99283

== ENCOUNTER 2021-04-10 14:22 | Emergency (ER) | payer MEDICAID, SELFPAY ==
[2021-04-10 15:00] VITALS: BP 125/73; PULSE 73; RESP 18; TEMP 36.3; O2SAT 98; BMI 19.4
--- NOTE | 2021-04-10 15:04 | US_ITS ---
WS: [id number] EARLY OBSTETRICAL ULTRASOUND (<14 WEEKS). HISTORY: 9 wks preg; cramping/bleeding COMPARISON: None available. Transabdominal and transvaginal imaging performed. There is an intrauterine gestational sac which is mildly elongated. Mean sac diameter of 1.9 cm corresponds to gestation of 7 weeks and 1 day. [place]-ru mp length of 0.6 cm corresponds to gestation of 6 weeks and 2 days. No cardiac activity is identified . The gestational sac is irregular. No definite yolk sac identified. RIGHT ovary measures 4.6 x 2.7 x 3.6 cm and contains a corpus luteum of measuring 2.3 x 2.2 x 2.0 cm. Normal vascularity in the ovary. Normal LEFT ovary. No free fluid. US/US OB <= 14 weeks fetus [id number] IMPRESSION: 1. Intrauterine gestational sac with crown-rump length. No cardiac activity. S uspect embryonic demise. Consider one week follow-up to confirm findings. 2. Based upon the crown-rump length measurement gestation should be 6 weeks an d 2 days. Cardiac activity should be confirmed at this time.
--- NOTE | 2021-04-10 15:05 | W.ED.PREGNAN ---
HPI - General: Chief complaint: Vaginal Bleeding Stated complaint: 9 WEEKS WITH BLEEDING AND CRAMPING Time Seen by Provider: 04/10/21 14:52 Source: patient and family Mode of arrival: ambulatory Limitations: no limitations History of Present Illness: HPI Narrative: Patient is a 20-year-old female at approximately 9 weeks here for concerns of worsening vaginal bleeding. Patient was seen at our facility 2 days ago for vaginal spotting. She had bedside ultrasound performed on that visit that confirmed IUP but did not comment on HR presence. hCG was lower than her initial quant [facility]. She was diagnosed with bacterial vaginosis and placed on Flagyl. They have yet to fill this medication. Patient tells me bleeding has increased and she is now noticing clots/tissue. Patient still having some lower back pain and lower pelvic cramping. Complaint: vaginal bleeding Onset (ago): day(s) Pain Consistency: constant Location: pelvis Severity: moderate Quality: Cramping Relieving factors: none Exacerbating factors: none Vaginal discharge: none Vaginal bleeding: heavy and clots Date of Last Menstrual Period: 02/05/21 Patient : Yes care: followed by OB Associated symptoms: Reports dysuria; Deny abdominal pain, headache(s), malaise, nausea, vaginal discharge or vomiting Review of Systems Const: Denies: fever(s), chills, body aches, fatigue or malaise Card: Denies: chest pain Resp: Denies: dyspnea GI: Denies: abdominal pain, nausea, vomiting, diarrhea, change in stool character or melena : Reports: dysuria, vaginal bleeding and pelvic pain; Denies: flank pain, difficulty voiding, urinary frequency, urinary urgency, hematuria, vaginal odor or vaginal discharge Musc: Reports: back pain; Denies: neck pain, extremity pain, extremity swelling, joint pain or joint swelling Skin/Breast: Denies: rash Neuro: Denies: headache(s), numbness in extremities, weakness in extremities or sensory changes PFSH ED PFSH: Medical History Patient denies medical problems Neghx: htn,dm,thryoid,dvt/pe PCP: none Surgical History No history of previous surgery Family History Father Hypertension Grandfather Diabetes Maternal Hyperlipidemia maternal Grandmother Diabetes Paternal Stroke Maternal great grandmother Breast cancer Maternal great grandmother--dx age unknown Ovarian cancer maternal great grandmother--dx age unknown Uterine cancer maternal great grandmother--dx age unknown Colon cancer maternal--dx age 60 Family/Other Diabetes Paternal aunt Female Reproductive History: Date of last menstrual period: 02/05/21 Physical Exam Const: COMMON NORMALS: no acute distress, average body habitus, patient oriented x3, no limitations, healthy appearing, alert and well nourished GENERAL APPEARANCE: cooperative ORIENTATION/CONSCIOUSNESS: Yes awake, Yes oriented to person, Yes oriented to place and Yes oriented to time HENMT: COMMON NORMALS: normocephalic and atraumatic HEAD & SCALP: normocephalic and atraumatic Resp: COMMON NORMALS: normal respiratory effort and clear to auscultation bilaterally AUSCULTATION: clear to auscultation bilaterally Cardio: COMMON NORMALS: regular rate and regular rhythm RATE: regular rate RHYTHM: regular rhythm GI: COMMON NORMALS: Normal to inspection, nondistended, normoactive bowel sounds present, Soft to palpation, No hepatosplenomegaly present and no masses PALPATION: Yes Soft to palpation, Yes Tenderness to palpation present (GI) (lower abdomen/pelvis) and Yes No hepatosplenomegaly present : COMMON NORMALS: Yes no CVA tenderness BLADDER/KIDNEY EXAM: Yes no CVA tenderness SPECULUM EXAM - CERVIX: Yes Cervical os open (slightly), No Cervical bleeding, No mucoid cervix, No Cervical tenderness present and Yes Other cervical findings present (scant vaginal bleeding noted) BIMANUAL EXAM - VAGINA & UTERUS: No Cervical tenderness present OB/EXTERNAL & SPECULUM: Cervical os open (slightly) Back/Pelvis: COMMON NORMALS: no CVA tenderness, no thoracic nor lumbar tenderness, thoraco-lumbar ROM normal and straight leg raise negative bilaterally THORACIC SPINE/UPPER BACK: Yes thoracic ROM normal and No thoracic spinal tenderness LUMBAR SPINE/LOWER BACK: Yes lumbar ROM normal, No lumbar spinal tenderness and Yes paraspinal muscle tenderness PELVIS: Yes buttocks normal SACROILIAC JOINTS: Yes SI joints normal Neuro: COMMON NORMALS: patient oriented x3 SENSORIUM/ORIENTATION: Yes alert, Yes oriented to person, Yes oriented to place and Yes oriented to time Skin: COMMON NORMALS: no rashes or lesions noted GENERAL SKIN EXAM: no rashes or lesions noted Course Vital Signs: Vital signs: Vital Signs Temperature 97.3 F L 04/10/21 15:00 Pulse Rate 73 04/10/21 15:00 Respiratory Rate 18 04/10/21 15:00 Blood Pressure 125/73 04/10/21 15:00 Pulse Oximetry 98 04/10/21 15:00 MDM - OB/Uterine Contractions MDM Narrative: Medical decision making narrative: Patient here with continued and progressing vaginal bleeding while . Patient's hCG levels have continued to trend downward. Her ultrasound showing no cardiac activity suspecting embryonic demise. Patient's wet prep from last visit reviewed and does show clue cells hence the prescription for the Flagyl upon her last visit. Gonorrhea/chlamydia swabs obtained during pelvic exam today although I don't have any suspicion for this. She is hemodynamically stable. Suspect bleeding will continue over the next few days-she was made aware of when she should return to the ED. Otherwise she needs to follow [facility] with [facility] so they can trend hcg downward. Lab Data: Labs: Lab Results 04/10/21 04/10/21 04/10/21 Range/Units 15:15 15:15 15:15 WBC 5.2 (4.0-10.0) 10^3/ uL RBC 4.24 (4.1-5.3) 10^6/u L Hgb 11.2 L (11.5-15.3) g/dL Hct 34.5 L (37.0-47.0) % MCV 81.4 (81-99) fl MCH 26.4 L (28.0-34.0) pg MCHC 32.5 (30.0-36.0) g/dL RDW 14.4 (12.1-15.1) % Plt Count 239 (130-400) 10^3/c mm MPV 11.9 H (7.4-10.4) fL Neut % (Auto) 46.6 % Lymph % (Auto) 45.5 % [place] % (Auto) 6.3 % Eos % (Auto) 1.0 % Baso % (Auto) 0.4 % Neut # (Auto) 2.43 (1.8-7.7) 10^3/u L Lymph # (Auto) 2.4 (0.8-4.8) 10^3/u L [place] # (Auto) 0.3 (0.2-0.9) 10^3/u L Eos # (Auto) 0.1 (0.0-0.8) 10^3/u L Baso # (Auto) 0.0 (0.0-0.1) 10^3/u L Nucleated RBC % (a uto) 0 % Nucleated RBCs # 0.0 /100WBC Sodium 134 L (136-145) mmol/L Potassium 4.2 (3.5-5.1) mmol/L Chloride 98 (98-107) mmol/L Carbon Dioxide 22 (22-29) mmol/L Anion Gap 18.2 (5-19) BUN 9 (6-20) mg/dL Creatinine 0.5 (0.5-0.9) mg/dL GFR Calculation 155.7 H (90-130) mL/min Glucose 83 (65-115) mg/dL Calculated Osmolal ity 276 L (285-295) mOsm/k g Calcium 9.0 (8.5-10.5) mg/dL Total Bilirubin 0.4 (0.15-1.2) mg/dL AST 14 (0-32) U/L ALT 9 (0-33) U/L Alkaline Phosphata se 37 (35-105) IU/L Total Protein 6.6 (6.6-8.7) g/dL Albumin 4.6 (3.5-5.2) g/dL Globulin 2.0 (1.3-4.6) g/dL Ser , [place] [address].00 mIU/mL Urine Color (Yellow) Urine Appearance (CLEAR) Urine pH (5-7) Ur Specific Gravit y (1.005-1.030) Urine Protein (Negative) Urine Glucose (UA) (Normal) Urine Ketones (Negative) Urine Blood (Negative) Urine Nitrate (Negative) Urine Bilirubin (Negative) Urine Urobilinogen (Negative) mg/dL Ur Leukocyte Susana ase (Negative) Urine RBC Urine WBC (0-5) /hpf Ur Squamous Epith Cells (0-5) /hpf Amorphous Sediment Urine Bacteria (NONE) /hpf Urine Mucus /hpf Blood Type A Positive Rho(D) Type Positive 04/10/21 Range/Units 16:24 WBC (4.0-10.0) 10^3/ uL RBC (4.1-5.3) 10^6/u L Hgb (11.5-15.3) g/dL Hct (37.0-47.0) % MCV (81-99) fl MCH (28.0-34.0) pg MCHC (30.0-36.0) g/dL RDW (12.1-15.1) % Plt Count (130-400) 10^3/c mm MPV (7.4-10.4) fL Neut % (Auto) % Lymph % (Auto) % [place] % (Auto) % Eos % (Auto) % Baso % (Auto) % Neut # (Auto) (1.8-7.7) 10^3/u L Lymph # (Auto) (0.8-4.8) 10^3/u L [place] # (Auto) (0.2-0.9) 10^3/u L Eos # (Auto) (0.0-0.8) 10^3/u L Baso # (Auto) (0.0-0.1) 10^3/u L Nucleated RBC % (a uto) % Nucleated RBCs # /100WBC Sodium (136-145) mmol/L Potassium (3.5-5.1) mmol/L Chloride (98-107) mmol/L Carbon Dioxide (22-29) mmol/L Anion Gap (5-19) BUN (6-20) mg/dL Creatinine (0.5-0.9) mg/dL GFR Calculation (90-130) mL/min Glucose (65-115) mg/dL Calculated Osmolal ity (285-295) mOsm/k g Calcium (8.5-10.5) mg/dL Total Bilirubin (0.15-1.2) mg/dL AST (0-32) U/L ALT (0-33) U/L Alkaline Phosphata se (35-105) IU/L Total Protein (6.6-8.7) g/dL Albumin (3.5-5.2) g/dL Globulin (1.3-4.6) g/dL Ser , Hoang i-Qnt mIU/mL Urine Color Straw (Yellow) Urine Appearance Clear (CLEAR) Urine pH 5 (5-7) Ur Specific Gravit y 1.025 (1.005-1.030) Urine Protein Neg (Negative) Urine Glucose (UA) Norm (Normal) Urine Ketones Negative (Negative) Urine Blood 3+ H (Negative) Urine Nitrate Negative (Negative) Urine Bilirubin Neg (Negative) Urine Urobilinogen Norm (Negative) mg/dL Ur Leukocyte Susana ase Negative (Negative) Urine RBC Not Reportable Urine WBC 5-10 H (0-5) /hpf Ur Squamous Epith Cells 5-10 H (0-5) /hpf Amorphous Sediment Not Reportable Urine Bacteria Trace (NONE) /hpf Urine Mucus 1+ /hpf Blood Type Rho(D) Type Imaging Data^: US OB: Radiologist's impression: [address] [address] Ultrasound Report Signed Patient: Rachel Gonzalez Unit #: [id number] : 2000 Age/Sex: 20 / F ADM Date: 04/10/21 Loc: ER Room/Bed: Attending Dr: Ordering Provider/Ordering MD: Lien Burger Date of Service: 04/10/21 Procedure(s): US OB <= 14 weeks fetus [id number] Accession Number(s): [id number] Report Number: [id number] WS: [id number] EARLY OBSTETRICAL ULTRASOUND (<14 WEEKS). HISTORY: 9 wks preg; cramping/bleeding COMPARISON: None available. Transabdominal and transvaginal imaging performed. There is an intrauterine gestational sac which is mildly elongated. Mean sac diameter of 1.9 cm corresponds to gestation of 7 weeks and 1 day. Reinbeck-rump length of 0.6 cm corresponds to gestation of 6 weeks and 2 days. No cardiac activity is identified. The gestational sac is irregular. No definite yolk sac identified. RIGHT ovary measures 4.6 x 2.7 x 3.6 cm and contains a corpus luteum of measuring 2.3 x 2.2 x 2.0 cm. Normal vascularity in the ovary. Normal LEFT ovary. No free fluid. US/US OB <= 14 weeks fetus [id number] IMPRESSION: 1. Intrauterine gestational sac with crown-rump length. No cardiac activity. Suspect embryonic demise. Consider one week follow-up to confirm findings. 2. Based upon the crown-rump length measurement gestation should be 6 weeks and 2 days. Cardiac activity should be confirmed at this time. Dictated By: Nitza Rodriguez DO Signed By: Nitza Rodriguez DO Signed Date/Time: 04/10/21 1554 DD/ 50 Discharge Plan Discharge Patient Disposition: Home Clinical Impression: Bacterial vaginosis in , Incomplete Condition: Stable Prescriptions: No Action metronidazole 500 mg tablet 500 mg PO BID 7 Days Qty: 14 RF: 0 Discharge Orders: Discharge ED (Routine); Ordered 04/10/21 Ordered By: Lien Burger Patient Instructions: Spontaneous Miscarriage (ED) Activity Restrictions/Additional Instructions: As we discussed please follow-up with the women's health clinic so they may continue to monitor your bleeding and hCG levels. You need to return to the emergency department for severe vaginal bleeding (consistently soaking more than 1 pad an hour), lightheadedness/dizziness, passing out episodes, racing heart rate, or any other concerns you may have. Coding Level of Care Code ED B2B Appointment Setter for Annieg Fwd Exam Comprehensive
[2021-04-10 15:34] LABS: Basophils % 0.4 %; Eosinophils # 0.1 10^3/uL (0.0-0.8); Hematocrit 34.5 % (37.0-47.0); Hemoglobin 11.2 g/dL (11.5-15.3); Lymphocytes # 2.4 10^3/uL (0.8-4.8); Lymphocytes % 45.5 %; Mean Corpuscular HGB Conc 32.5 g/dL (30.0-36.0); Mean Corpuscular Hemoglobin 26.4 pg (28.0-34.0); Mean Corpuscular Volume 81.4 fl (81-99); Mean Platelet Volume 11.9 fL (7.4-10.4); Monocytes # 0.3 10^3/uL (0.2-0.9); Monocytes % 6.3 %; Neutrophils # 2.43 10^3/uL (1.8-7.7); Neutrophils % 46.6 %; Nucleated Red Blood Cells % 0 %; Platelet Count 239 10^3/cmm (130-400); Red Blood Count 4.24 10^6/uL (4.1-5.3); Red Cell Distribution Width 14.4 % (12.1-15.1); White Blood Count 5.2 10^3/uL (4.0-10.0)
[2021-04-10 16:13] LABS: Alanine Aminotransferase 9 U/L (0-33); Albumin Level 4.6 g/dL (3.5-5.2); Alkaline Phosphatase 37 IU/L (35-105); Aspartate Amino Transferase 14 U/L (0-32); Blood Urea Nitrogen 9 mg/dL (6-20); Carbon Dioxide 22 mmol/L (22-29); Chloride 98 mmol/L (98-107); Glomerular Filtration Rate 155.7 mL/min (90-130); Glucose 83 mg/dL (65-115); Osmolality Calculated 276 mOsm/kg (285-295); Sodium 134 mmol/L (136-145); Total Bilirubin 0.4 mg/dL (0.15-1.2); Total Protein 6.6 g/dL (6.6-8.7)
[2021-04-10 16:15] LABS: Anion Gap 18.2 (5-19); Potassium 4.2 mmol/L (3.5-5.1)
--- NOTE | 2021-04-10 16:29 | PC.NURSE ---
vaginal swab taken to lab at this time
[2021-04-10 16:34] LABS: Charge for UA Resulting for Rev
[2021-04-10 16:49] LABS: Add Urine Microscopic? YES; Bilirubin Urine Neg (Negative); Blood Urine 3+ (Negative); Glucose Urine UA Norm (Normal); Ketones Urine Negative (Negative); Leukocyte Esterase Urine Negative (Negative); Nitrate Urine Negative (Negative); Protein Urine Neg (Negative); Specific Gravity, Urine 1.025 (1.005-1.030); Urine Appearance Clear (CLEAR); Urine Color Straw (Yellow); Urobilinogen Urine Norm (Negative); pH Urine 5 (5-7)
[2021-04-10 16:50] LABS: Add Urine Culture? No; Bacteria Urine TRACE /hpf; Mucus Urine 1+ /hpf
== END 2021-04-10 17:13 | disposition home or self-care (01) ==
PROVIDERS: Emergency Provider Physician Assistant
DX: O23.591 Infection of other part of genital tract in pregnancy, first trimester (principal); Z3A.09 9 weeks gestation of pregnancy; O03.4 Incomplete spontaneous abortion without complication
CPT/HCPCS: 76801; 80053; 81001; 81003; 84702; 85025; 86900; 99284

== ENCOUNTER → 2021-04-18 10:13 | Outpatient (BNVA) | payer MEDICAID, SELFPAY | PROVIDERS: Visit Provider Nurse Practitioner Women's Health | DX: O03.4 Incomplete spontaneous abortion without complication (principal) | CPT/HCPCS: 84702; 85027 ==

== ENCOUNTER → 2021-05-07 10:41 | Outpatient (BNVA) | payer MEDICAID, SELFPAY | PROVIDERS: Visit Provider Nurse Practitioner Women's Health | DX: O03.4 Incomplete spontaneous abortion without complication (principal) | CPT/HCPCS: 84702 ==

== ENCOUNTER → 2021-05-09 15:33 | Outpatient (BNVA) | payer MEDICAID, SELFPAY | PROVIDERS: Visit Provider Nurse Practitioner Women's Health | DX: Z01.419 Encounter for gynecological examination (general) (routine) without abnormal findings (principal); O03.4 Incomplete spontaneous abortion without complication | CPT/HCPCS: 88175 ==

== ENCOUNTER → 2021-07-06 17:00 | Outpatient (BNVA) | payer MEDICAID, SELFPAY | PROVIDERS: Visit Provider Registered Nurse Neonatal Intensive Care | DX: J02.9 Acute pharyngitis, unspecified (principal); H66.91 Otitis media, unspecified, right ear | CPT/HCPCS: 87880 ==

== ENCOUNTER → 2021-10-17 09:09 | Outpatient (BNVA) | payer MEDICAID, SELFPAY | PROVIDERS: Visit Provider Family Medicine | DX: F41.1 Generalized anxiety disorder (principal); F41.0 Panic disorder [episodic paroxysmal anxiety]; Z76.89 Persons encountering health services in other specified circumstances; F41.9 Anxiety disorder, unspecified | CPT/HCPCS: 80053; 84443; 85025 ==

== ENCOUNTER 2022-03-04 15:05 | Outpatient (CLI) | payer MEDICAID, SELFPAY ==
[2022-03-04 15:31] LABS: Basophils % 0.3 %; Eosinophils # 0.1 10^3/uL (0.0-0.8); Eosinophils % 0.9 %; Hematocrit 37.3 % (37.0-47.0); Hemoglobin 11.9 g/dL (11.5-15.3); Lymphocytes # 1.7 10^3/uL (0.8-4.8); Lymphocytes % 26.4 %; Mean Corpuscular HGB Conc 31.9 g/dL (30.0-36.0); Mean Corpuscular Hemoglobin 27.4 pg (28.0-34.0); Mean Corpuscular Volume 85.9 fl (81-99); Monocytes # 0.4 10^3/uL (0.2-0.9); Monocytes % 6.4 %; Neutrophils # 4.33 10^3/uL (1.8-7.7); Neutrophils % 65.8 %; Nucleated Red Blood Cells % 0 %; Platelet Count 293 10^3/cmm (130-400); Red Blood Count 4.34 10^6/uL (4.1-5.3); Red Cell Distribution Width 13.2 % (12.1-15.1); White Blood Count 6.6 10^3/uL (4.0-10.0)
== END 2022-03-04 15:06 | disposition home or self-care (01) ==
LOC: LAB 15:08
PROVIDERS: Visit Provider Obstetrics & Gynecology
DX: O20.9 Hemorrhage in early pregnancy, unspecified (principal)
CPT/HCPCS: 36415; 84702; 85025

== ENCOUNTER 2022-03-05 20:01 | Emergency (ER) | payer MEDICAID, SELFPAY ==
[2022-03-05 20:17] VITALS: BP 105/68; PULSE 66; RESP 14; TEMP 36.7; O2SAT 99; BMI 20.2
--- NOTE | 2022-03-05 20:51 | USR_ITS ---
PROCEDURE INFORMATION: Exam: US First Trimester, Transabdominal and US , Transvaginal Exam date and time: 03/05/2022 9:54 PM Age: 21 years old Clinical indication: Lmp or gestational age (in weeks): 6w 4d; Other: Vaginal bleeding x 3 days; ; Patient HX: G4 - p1- a2-l1; Additional info: Vag bleeding LABS AND CLINICAL REPORTS: Serum Choriogonadotropin (HCG): 46090 mIU/mL Last menstrual period start date: 01/18/2022 Gestational age (Established): 6 w 4 d Estimated due date (Established): 10/25/2022 TECHNIQUE: Imaging protocol: Real-time transabdominal obstetrical ultrasound of the maternal pelvis and a first trimester , less than 14 weeks 0 days, with image documentation. Transvaginal imaging was used for better evaluation of the fetus, adnexa, and/or cervix. COMPARISON: US OB <= 14 weeks fetus [id number] 04/10/2021 3:26 PM FINDINGS: Gestation: Single intrauterine gestational sac with a flat morphology and internal debris. No fetus or yolk sac is visible. The gestational sac measures up to 19 mm diameter. Embryonic/ heart rate: Not detected Extra-embryonic membranes/Placenta: No subchorionic hematoma. Amniotic fluid: Not applicable. BIOMETRY: Gestational age (AUA): Not calculated MATERNAL: Uterus: Uterus measures 9.6 cm x 5.2 cm x 7.2 cm. The uterus is retroflexed. Contours are otherwise normal. Cervix: Unremarkable. Right ovary/adnexa: There is a 3.2 cm simple cyst in the right ovary. The right ovary measures 4.5 x 4.2 x 3.0 cm. Left ovary/adnexa: The left ovary is morphologically normal. The left ovary measures 2.7 x 2.4 x 1.6 cm. Intraperitoneal space: No intraperitoneal free fluid. US/US transvaginal [id number] IMPRESSION: Morphologically abnormal gestational sac located within the uterus. Findings are suspicious for, but not diagnostic of failure. Recommend follow-up ultrasound in 7-10 days to assess viability.
[2022-03-05 21:05] VITALS: BP 112/73; PULSE 80; RESP 19; O2SAT 99
--- NOTE | 2022-03-05 21:12 | ED_ITS ---
HPI - General Adult General: Chief complaint: Vaginal Bleeding Stated complaint: Vaginal Bleeding\Weak Time Seen by Provider: 03/05/22 20:51 History of Present Illness: Patient is a 21-year-old G4, P1 female at 6 weeks by LMP presenting to the emergency with complaints of 3 days of vaginal bleeding. Patient tells me that since Friday, she has been been having vaginal bleeding with occasional passage of clots intermittent cramps. Patient has a new vaginal discharge, dysuria symptom or urinary complaints. Patient denies any flank pain, fever/chills, cough, runny nose sore throat. Patient has no complaints of chest pain or shortness breath. Patient denies any regular contractions. Patient has not been able to follow-up with OB provider. She has had 2 prior miscarriages. Onset:3 days ago Duration:3 days Location:home Severity:moderate Associated symptoms: Deny chest pain, dyspnea, nausea, rash, palpitations or vomiting Review of Systems Const: Denies: fever(s) or chills Eyes: Denies: change in vision ENMT: Denies: mouth pain Card: Denies: chest pain or palpitations Resp: Denies: dyspnea or non-productive cough GI: Denies: abdominal pain, nausea, vomiting or diarrhea : Reports: other (+vaginal bleeding/pelvic cramps); Denies: dysuria Musc: Denies: extremity pain Skin/Breast: Denies: rash or new lesions Neuro: Denies: weakness in extremities Psych: Reports: other (Normal mood) Alfonso/Lymph: Denies: easy bruising PFS ED PFSH: Medical History Patient denies medical problems Neghx: htn,dm,thryoid,dvt/pe PCP: none Surgical History No history of previous surgery Family History Father Hypertension Grandfather Diabetes Maternal Hyperlipidemia maternal Grandmother Diabetes Paternal Stroke Maternal great grandmother Breast cancer Maternal great grandmother--dx age unknown Ovarian cancer maternal great grandmother--dx age unknown Uterine cancer maternal great grandmother--dx age unknown Colon cancer maternal--dx age 60 Family/Other Diabetes Paternal aunt Social History Smoking and tobacco status: never smoked Alcohol intake: current Alcohol intake frequency: holidays/special occasions only Female Reproductive History: Date of last menstrual period: 01/18/22 Physical Exam Const: COMMON NORMALS: alert HENMT: COMMON NORMALS: atraumatic HEAD & SCALP: atraumatic MOUTH: moist mucous membranes not abnormal Eye: COMMON NORMALS: EOMs intact bilaterally and conjunctivae normal CONJUNCTIVA: Yes conjunctivae normal Neck/C-Spine: COMMON NORMALS: full ROM and supple Resp: COMMON NORMALS: normal respiratory effort and clear to auscultation bilaterally AUSCULTATION: clear to auscultation bilaterally Cardio: COMMON NORMALS: regular rate RATE: regular rate GI: COMMON NORMALS: Soft to palpation and non-tender PALPATION: Yes Soft to palpation OTHER: No focal TTP. NO guarding rebound, guarding, rigidity. No CVA tenderness to percussion. Neg Hussein/Neg McBurney's point tenderness, no suprabupic tenderness to palpation. : OTHER: I offered pelvic exam but patient deferred Extremity: COMMON NORMALS: full ROM Neuro: SENSORIUM/ORIENTATION: Yes alert MOTOR EXAM: No Abnormal motor strength present and Other motor observations present (no focal motor deficits) Psych: COMMON NORMALS: speech normal SPEECH: Yes normal speech MOOD & AFFECT: Yes euthymic mood Course Vital Signs: Vital signs: Vital Signs Temperature 98.1 F 03/05/22 20:17 Pulse Rate 73 03/06/22 00:13 Respiratory Rate 16 03/06/22 00:13 Blood Pressure 97/55 03/06/22 00:13 Pulse Oximetry 100 03/05/22 21:44 Oxygen Delivery Me thod 03/05/22 21:44 MDM - General Adult Medical Decision Making 21-year-old female G4, P1 presenting to the emergency room with concerns of vaginal bleeding pelvic cramps for 3 days. On physical exam, patient is hemodynamically stable no focal abdominal tenderness palpation. Patient forego the pelvic exam today. Hemoglobin appears to be stable at 11.7. Ultrasound showed IUP. Patient is Rh+. I have given patient follow up with our case management specialist to be seen by our outpatient by OB for evaluation threatened miscarriage. Patient aware of a call from our case management specialist to schedule for appointment(s) and verbalizes understanding of the importance of following up. Rx tylenol PRN pain Disposition: Discharge. Patient counseled regarding diagnostic impression, treatment plan. Patient given ED strict return precautions to return for continuation, worsening, or development of new symptoms. Instructed to f/u w/ OB regarding symptoms today. Patient verbalized understanding. Lab Data : 03/05/22 21:05 03/05/22 21:05 Radiology Impressions Transvaginal US 03/05/22 20:51 IMPRESSION: Morphologically abnormal gestational sac located within the uterus. Findings are suspicious for, but not diagnostic of failure. Recommend follow-up ultrasound in 7-10 days to assess viability. Laboratory Results WBC 7.6 10^3/uL (4.0-10.0) 03/05/22 21:05 RBC 4.21 10^6/uL (4.1-5.3) 03/05/22 21:05 Hgb 11.7 g/dL (11.5-15.3) 03/05/22 21:05 Hct 36.8 % (37.0-47.0) L 03/05/22 21:05 MCV 87.4 fl (81-99) 03/05/22 21:05 MCH 27.8 pg (28.0-34.0) L 03/05/22 21:05 MCHC 31.8 g/dL (30.0-36.0) 03/05/22 21:05 RDW 13.6 % (12.1-15.1) 03/05/22 21:05 Plt Count 280 10^3/cmm (130-400) 03/05/22 21:05 MPV 11.7 fL (7.4-10.4) H 03/05/22 21:05 Neut % (Auto) 52.6 % 03/05/22 21:05 Lymph % (Auto) 38.1 % 03/05/22 21:05 [place] % (Auto) 7.5 % 03/05/22 21:05 Eos % (Auto) 1.3 % 03/05/22 21:05 Baso % (Auto) 0.4 % 03/05/22 21:05 Neut # (Auto) 3.98 10^3/uL (1.8-7.7) 03/05/22 21:05 Lymph # (Auto) 2.9 10^3/uL (0.8-4.8) 03/05/22 21:05 [place] # (Auto) 0.6 10^3/uL (0.2-0.9) 03/05/22 21:05 Eos # (Auto) 0.1 10^3/uL (0.0-0.8) 03/05/22 21:05 Baso # (Auto) 0.0 10^3/uL (0.0-0.1) 03/05/22 21:05 Nucleated RBC % (auto) 0 % 03/05/22 21:05 Nucleated RBCs # 0.0 /100WBC 03/05/22 21:05 Sodium 134 mmol/L (136-145) L 03/05/22 21:05 Potassium 4.0 mmol/L (3.5-5.1) 03/05/22 21:05 Chloride 99 mmol/L (98-107) 03/05/22 21:05 Carbon Dioxide 25 mmol/L (22-29) 03/05/22 21:05 Anion Gap 14.0 (5-19) 03/05/22 21:05 BUN 10 mg/dL (6-20) 03/05/22 21:05 Creatinine 0.6 mg/dL (0.5-0.9) 03/05/22 21:05 GFR Calculation 125.0 mL/min (90-130) 03/05/22 21:05 Glucose 90 mg/dL (65-115) 03/05/22 21:05 Calculated Osmolality 277 mOsm/kg (285-295) L 03/05/22 21:05 Calcium 8.9 mg/dL (8.5-10.5) 03/05/22 21:05 Ser , Semi-Qnt 98022.00 mIU/mL 03/05/22 21:05 Blood Type A Positive 03/05/22 21:09 Rho(D) Type Positive 03/05/22 21:09 Discharge Plan Discharge Patient Disposition: Home Clinical Impression: Threatened miscarriage, Vaginal bleeding Condition: Stable Prescriptions: No Action escitalopram oxalate 5 mg tablet 5 mg PO DAILY Qty: 30 2RF buspirone 5 mg tablet 5 mg PO TID PRN (Reason: Anxiety attacks) Qty: 30 0RF Discharge Orders: Discharge ED (Routine); Ordered 03/05/22 Ordered By: Tyshawn Aguilera Discharge Diet: Advance as tolerated Discharge Activity: Increase activity as tolerated Patient Instructions: Abnormal (Dysfunctional) Uterine Bleeding (ED), Non-Th reatening First Trimester Vaginal Bleed (ED) Activity Restrictions/Additional Instructions: Our case management specialist will have you follow-up with [facility] in the next few days. You would be expected to have a phone call with our case management specialist who will put you on the schedule. You can expect a call from us in the next 2-3 days. If you don't hear from us, call us back in the emergency room at [phone]. Please come back to the emergency room if you notice your bleeding has significantly worse or if any new external complaints. Coding Level of Care Code ED Water Leak Repairer for Nafisa Fwd Exam Comprehensive
[2022-03-05 21:14] LABS: Basophils % 0.4 %; Eosinophils # 0.1 10^3/uL (0.0-0.8); Eosinophils % 1.3 %; Hematocrit 36.8 % (37.0-47.0); Hemoglobin 11.7 g/dL (11.5-15.3); Lymphocytes # 2.9 10^3/uL (0.8-4.8); Lymphocytes % 38.1 %; Mean Corpuscular HGB Conc 31.8 g/dL (30.0-36.0); Mean Corpuscular Hemoglobin 27.8 pg (28.0-34.0); Mean Corpuscular Volume 87.4 fl (81-99); Mean Platelet Volume 11.7 fL (7.4-10.4); Monocytes # 0.6 10^3/uL (0.2-0.9); Monocytes % 7.5 %; Neutrophils # 3.98 10^3/uL (1.8-7.7); Neutrophils % 52.6 %; Nucleated Red Blood Cells % 0 %; Platelet Count 280 10^3/cmm (130-400); Red Blood Count 4.21 10^6/uL (4.1-5.3); Red Cell Distribution Width 13.6 % (12.1-15.1); White Blood Count 7.6 10^3/uL (4.0-10.0)
[2022-03-05 21:44] VITALS: BP 116/59; RESP 18; O2SAT 100
[2022-03-05 21:47] LABS: Blood Urea Nitrogen 10 mg/dL (6-20); Calcium 8.9 mg/dL (8.5-10.5); Carbon Dioxide 25 mmol/L (22-29); Chloride 99 mmol/L (98-107); Glucose 90 mg/dL (65-115); Osmolality Calculated 277 mOsm/kg (285-295); Sodium 134 mmol/L (136-145)
[2022-03-06] VITALS: BP 97/55; PULSE 73; RESP 16
[2022-03-06 00:13] VITALS: BP 97/55; PULSE 73; RESP 16
--- NOTE | 2022-03-07 08:44 | DCPLANNER ---
Addendum entered by Albania Lopez 03/19/22 13:31: Patient had a follow up appointment scheduled for 03.11.22 with [facility] - patient did attend appointment. Addendum entered by Albania Lopez 03/08/22 13:56: patient has a follow up appointment scheduled for Friday, March 11, 2022 at 3:45 at [facility]. Clinic will call patient with appointment information. Original Note: household manager had message to schedule a follow up appointment for patient with [facility]. household manager sent patients information to the front office staff at [facility]. Patients information will be printed and reviewed. Clinic will call patient with appointment information.
== END 2022-03-06 00:16 | disposition home or self-care (01) ==
PROVIDERS: Emergency Provider Emergency Medicine
DX: O20.0 Threatened abortion (principal); Z3A.01 Less than 8 weeks gestation of pregnancy
CPT/HCPCS: 76830; 80048; 84702; 85025; 86900; 99284

== ENCOUNTER → 2022-03-11 15:43 | Outpatient (BNVA) | payer MEDICAID, SELFPAY | PROVIDERS: Visit Provider Obstetrics & Gynecology | DX: O36.80X0 Pregnancy with inconclusive fetal viability, not applicable or unspecified (principal); Z3A.00 Weeks of gestation of pregnancy not specified | CPT/HCPCS: 76817; 76830 ==

== ENCOUNTER 2022-03-11 16:29 | Outpatient (CLI) | payer MEDICAID, SELFPAY | END 2022-03-11 16:30 | disposition home or self-care (01) | LOC: LAB 16:32 | PROVIDERS: PCP Family Medicine; Visit Provider Obstetrics & Gynecology | DX: O20.0 Threatened abortion (principal) | CPT/HCPCS: 84702 ==

== ENCOUNTER 2022-03-14 15:38 | Outpatient (CLI) | payer MEDICAID, SELFPAY | END 2022-03-14 15:39 | disposition home or self-care (01) | LOC: LAB 15:40 | PROVIDERS: PCP Family Medicine; Visit Provider Obstetrics & Gynecology | DX: O20.0 Threatened abortion (principal) | CPT/HCPCS: 36415; 84702 ==

== ENCOUNTER → 2022-03-15 08:51 | Outpatient (BNVA) | payer MEDICAID, SELFPAY | PROVIDERS: PCP Family Medicine; Visit Provider Obstetrics & Gynecology | DX: O26.899 Other specified pregnancy related conditions, unspecified trimester (principal); Z3A.00 Weeks of gestation of pregnancy not specified | CPT/HCPCS: 76801; 76817 ==

== ENCOUNTER 2022-03-15 10:33 | Day surgery (SDC) | payer MEDICAID, SELFPAY ==
[2022-03-15] VITALS (7 sets, daily range): BP systolic 100–134; BP diastolic 56–83; PULSE 56–74; RESP 18–21; TEMP 36.3; O2SAT 98–100; BMI 20.2
--- NOTE | 2022-03-15 11:51 | W.PM.OPSUD ---
Surgery/Procedure H&P Update DATE OF PROCEDURE: March 15, 2022 DATE H&P PERFORMED: 03/15/22 H&P UPDATE INFORMATION: I have reviewed H&P completed within last 30 days, I have examined patient prior to procedure and No changes to prior documentation PREOP DIAGNOSIS: Incomplete AB PLANNED PROCEDURE: Operation Date: 03/15/22 12:10 Proposed Procedures p Dilation And Curettage w/ Suction [id number](Not Applicable) - Duke Escobedo MD
--- NOTE | 2022-03-15 11:53 | P.ANESASSM_ITS ---
Pre-Anesthetic Assessment Height/Weight: Height 1.65 m Weight 55.338 kg O2 Del Method 03/15/22 10:49 Preop Diagnosis: Incomplete AB Operation Date: 03/15/22 12:10 Proposed Procedures p Dilation And Curettage w/ Suction [id number](Not Applicable) - Duke Escobedo MD Familial anesthetic complications: None Was Beta Eric taken within 24 hours: N/A Was Clonidine taken within 24 hours: N/A Last intake: Intake Last Liquid Date 03/14/22 Last Liquid Time 00:30 Last Solid Date 03/14/22 Last Solid Time 19:00 Social No alcohol and No tobacco Exam alert, oriented x 3, clear to auscultation bilaterally and regular rate & rhythm Airway Submandibular: within normal limits Cervical ROM: within normal limits Mallampati: Class II Dentition: full Neuropsych Anxiety Anesthetic Plan ASA status: 2 Anesthesia: General Medications/Allergies Home Medications Medication Instructions Recorded Confirmed Last Taken Type No Known Home Medications 03/15/22 03/15/22 Unknown History Allergies Allergy/AdvReac Type Severity Reaction Status Date / Time No Known Allergies Allergy Verified 03/15/22 08:03 [facility] Anesthesia Medical History Patient denies medical problems Neghx: htn,dm,thryoid,dvt/pe PCP: none Surgical History No history of previous surgery Family History Father Hypertension Grandfather Diabetes Maternal Hyperlipidemia maternal Grandmother Diabetes Paternal Stroke Maternal great grandmother Breast cancer Maternal great grandmother--dx age unknown Ovarian cancer maternal great grandmother--dx age unknown Uterine cancer maternal great grandmother--dx age unknown Colon cancer maternal--dx age 60 Family/Other Diabetes Paternal aunt Social History Smoking and tobacco status: never smoked Alcohol intake: current Alcohol intake frequency: holidays/special occasions only Female Reproductive History Date of last menstrual period: 01/18/22 Data Anesthesia Cardiac Studies: No Data to Display
[2022-03-15] MEDS: scopolamine 1.5 Patch 1 PATCH TRANSDERMA (11:59)
[2022-03-15] MEDS: sodium chloride 0.9% 500 ML IV (11:59)
[2022-03-15] MEDS: ceFAZolin 2,000 MG in sodium chloride 0.9% (plus) 50 ML 100 MG IV (12:04)
[2022-03-15 12:05] LABS: Basophils % 0.3 %; Eosinophils % 0.5 %; Hematocrit 35.9 % (37.0-47.0); Hemoglobin 11.3 g/dL (11.5-15.3); Lymphocytes # 1.7 10^3/uL (0.8-4.8); Lymphocytes % 27.1 %; Mean Corpuscular HGB Conc 31.5 g/dL (30.0-36.0); Mean Corpuscular Hemoglobin 27.4 pg (28.0-34.0); Mean Corpuscular Volume 86.9 fl (81-99); Mean Platelet Volume 11.6 fL (7.4-10.4); Monocytes # 0.4 10^3/uL (0.2-0.9); Neutrophils % 64.9 %; Nucleated Red Blood Cells % 0 %; Platelet Count 232 10^3/cmm (130-400); Red Blood Count 4.13 10^6/uL (4.1-5.3); Red Cell Distribution Width 13.7 % (12.1-15.1); White Blood Count 6.3 10^3/uL (4.0-10.0)
[2022-03-15 12:26] LABS: Alanine Aminotransferase 7 U/L (0-33); Albumin Level 4.5 g/dL (3.5-5.2); Alkaline Phosphatase 35 U/L (35-105); Anion Gap 14.1 (5-19); Aspartate Amino Transferase 11 U/L (0-32); Blood Urea Nitrogen 7 mg/dL (6-20); Carbon Dioxide 25 mmol/L (22-29); Chloride 100 mmol/L (98-107); Globulin 2.6 g/dL (1.3-4.6); Glomerular Filtration Rate 154.3 mL/min (90-130); Glucose 79 mg/dL (65-115); Osmolality Calculated 277 mOsm/kg (285-295); Potassium 4.1 mmol/L (3.5-5.1); Sodium 135 mmol/L (136-145); Total Bilirubin 0.6 mg/dL (0.15-1.2); Total Protein 7.1 g/dL (6.6-8.7)
--- NOTE | 2022-03-15 12:37 | PM.OP ---
Operative Report Date of procedure: March 15, 2022 Pre-op diagnosis: Preop Diagnosis Incomplete AB Post-op diagnosis: Incomplete AB Procedure done: Suction dilation and curettage Specimens removed/disposition: Products of conception Pathology: Products of conception Surgeon: Duke Escobedo MD Estimated blood loss (mL): 50 IV fluids (mL): 200 Complications: None Brief History: Ms. Gonzalez 21-year-old female G5, P1, with a LMP on 01/18/2022 EGA today at 8 weeks. Seen in the ER on 03/05/22 and Dx with threatened AB, Then diagnosed with blighted ovum. The hCG quantitative slowly increased then plateau, diagnosed with missed vs incomplete AB. Serial ultrasounds did not show viable and pole or embryo were never identified. Patient was counseled regarding all treatment modalities and she elected with surgical management via Suction D&C. Procedure: After informed consent, the patient was taken to the Operating Room where general anesthesia was administered. The patient was examined under anesthesia and found to have a normal uterus with normal adnexa. She was placed in the dorsal lithotomy position and prepped and draped in sterile fashion. A sterile weighted speculum was placed in the patient?s vagina. A single-tooth tenaculum was then applied to the cervix. The uterus was then gently sounded to 9 cm and a suction curette was advanced gently to the uterine fundus and product of conception emptied. A sharp curettage was then performed until a gritty texture was noted. There was minimal bleeding noted and the tenaculum was removed with good hemostasis noted. The patient tolerated the procedure well. The patient was taken to the recovery area in stable condition.
--- NOTE | 2022-03-15 13:29 | SUR.PHASEII ---
patient stated in pre op that she cannot take pills, i told her to let dr galvan know this. In post op her rx has been sent in for pills. patient requests for pharmacy to fill in liquid form. [facility] contacted and requested for rx to be liquid form.
[2022-03-15] MEDS: ibuprofen Oral Susp 100 mg/5mL UDC 800 MG PO (13:53)
--- NOTE | 2022-03-15 14:46 | ANE.PACU2 ---
Inpatient post-anesthesia follow up: Airway intact: Yes Vital signs: Temperature 97.3 F Pulse Rate 69 Respiratory Rate 18 Blood Pressure 130/69 Pulse Oximetry 98 Oxygen Delivery Me thod Room Air Oxygen Flow Rate Fraction of Inspir ed Oxygen Hydration adequate: Yes Nausea and vomiting: No Pain level: 2 Mental status: Baseline
== END 2022-03-15 14:17 | disposition home or self-care (01) ==
PROVIDERS: PCP Family Medicine; Visit Provider Obstetrics & Gynecology
PROC: (CPT 59820; principal; 2022-03-15 12:00)
DX: O03.4 Incomplete spontaneous abortion without complication (principal)
CPT/HCPCS: 59820; 36415; 80053; 84702; 85025; 86850; 86900; 88305; J1100; J1200; J2250; J2405; J2704; J3010; J7040

== ENCOUNTER → 2022-04-17 15:35 | Outpatient (BNVA) | payer MEDICAID, SELFPAY | PROVIDERS: PCP Family Medicine; Visit Provider Registered Nurse Neonatal Intensive Care | DX: J02.9 Acute pharyngitis, unspecified (principal); H66.001 Acute suppurative otitis media without spontaneous rupture of ear drum, right ear | CPT/HCPCS: 87880 ==

== ENCOUNTER 2022-08-22 02:12 | Emergency (ER) | payer MEDICAID, SELFPAY ==
[2022-08-22 02:14] VITALS: BP 119/68; PULSE 72; RESP 12; TEMP 36.8; O2SAT 98; BMI 22.1
--- NOTE | 2022-08-22 02:30 | W.ED.WEAKNES ---
HPI - Weakness General: Chief complaint: Weakness Stated complaint: flu-like symptoms Time Seen by Provider: 08/22/22 02:14 Source: patient Mode of arrival: ambulatory Limitations: no limitations History of Present Illness: 22-year-old female states that over the last 2 days she been having some fevers along with body aches and chills she has been having some eye pain along with a mild headache as well had a slight cough denies any known sick contacts she has had no vomiting or diarrhea denies any abdominal pain denies any dysuria. Associated symptoms: Reports chills and fever(s); Denies chest pain, dysuria, easy bruising, headache(s), nausea or vomiting Review of Systems Const: Reports: fever(s), chills and body aches Eyes: Reports: eye discomfort ENMT: Denies: throat pain or dental pain Card: Denies: chest pain Resp: Reports: non-productive cough GI: Denies: abdominal pain, nausea, vomiting or diarrhea : Denies: dysuria Musc: Denies: neck pain or back pain Skin/Breast: Denies: rash Neuro: Denies: headache(s) Psych: Denies: depression Alfonso/Lymph: Denies: easy bruising All/Imm: Denies: urticaria PFSH ED PFSH: Medical History Patient denies medical problems Neghx: htn,dm,thryoid,dvt/pe PCP: none Surgical History No history of previous surgery Family History Father Hypertension Grandfather Diabetes Maternal Hyperlipidemia maternal Grandmother Diabetes Paternal Stroke Maternal great grandmother Breast cancer Maternal great grandmother--dx age unknown Ovarian cancer maternal great grandmother--dx age unknown Uterine cancer maternal great grandmother--dx age unknown Colon cancer maternal--dx age 60 Family/Other Diabetes Paternal aunt Social History Smoking and tobacco status: current every day smoker e-cigarettes E-Cigarette Details: vaporizer device Alcohol intake: current Alcohol intake frequency: holidays/special occasions only Female Reproductive History: Date of last menstrual period: 08/17/22 Physical Exam Const: COMMON NORMALS: no acute distress, patient oriented x3 and healthy appearing HENMT: COMMON NORMALS: normocephalic and atraumatic HEAD & SCALP: normocephalic and atraumatic Eye: COMMON NORMALS: Equal, round and reactive pupils present and EOMs intact bilaterally PUPIL: Yes Equal, round and reactive pupils present Neck/C-Spine: COMMON NORMALS: full ROM and supple Chest: COMMONS NORMALS: normal inspection of the chest and normal palpation of entire chest wall Resp: COMMON NORMALS: normal respiratory effort, No retractions, No use of accessory muscles and clear to auscultation bilaterally AUSCULTATION: clear to auscultation bilaterally Cardio: COMMON NORMALS: regular rate, regular rhythm and No murmurs present (Cardio) RATE: regular rate RHYTHM: regular rhythm GI: COMMON NORMALS: Normal to inspection, nondistended, normoactive bowel sounds present, Soft to palpation, non-tender and no masses PALPATION: Yes Soft to palpation Extremity: COMMON NORMALS: normal to inspection and full ROM Neuro: COMMON NORMALS: patient oriented x3, moves all extremities and no focal motor deficits Psych: COMMON NORMALS: mental status grossly normal, Normal thought process present and cooperative THOUGHT PROCESS: Normal thought process present Skin: COMMON NORMALS: no rashes or lesions noted and no wounds GENERAL SKIN EXAM: no rashes or lesions noted Course Vital Signs: Vital signs: Vital Signs Temperature 98.2 F 08/22/22 02:14 Pulse Rate 72 08/22/22 02:14 Respiratory Rate 12 08/22/22 02:14 Blood Pressure 119/68 08/22/22 02:14 Pulse Oximetry 98 08/22/22 02:14 Oxygen Delivery Me thod 08/22/22 02:14 MDM - Weakness Medical Decision Making Patient presents here with likely viral syndrome fever body aches along with headache headache here was resolved with Toradol White count is normal I did discuss her possibility of meningitis and offered lumbar puncture I feel that it is a low likelihood though did inform her this to and we came to joint decision she will treat with Motrin at home if her headache or fevers worsen she will return she understands agrees to plan. Lab Data 08/22/22 02:46 08/22/22 02:46 Radiology Impressions Chest X-Ray 08/22/22 02:31 IMPRESSION: No acute cardiopulmonary disease on the chest radiograph. Laboratory Results WBC 4.7 10^3/uL (4.0-10.0) 08/22/22 02:46 RBC 4.58 10^6/uL (4.1-5.3) 08/22/22 02:46 Hgb 12.4 g/dL (11.5-15.3) 08/22/22 02:46 Hct 40.0 % (37.0-47.0) 08/22/22 02:46 MCV 87.3 fl (81-99) 08/22/22 02:46 MCH 27.1 pg (28.0-34.0) L 08/22/22 02:46 MCHC 31.0 g/dL (30.0-36.0) 08/22/22 02:46 RDW 13.2 % (12.1-15.1) 08/22/22 02:46 Plt Count 227 10^3/cmm (130-400) 08/22/22 02:46 MPV 11.4 fL (7.4-10.4) H 08/22/22 02:46 Neut % (Auto) 49.6 % 08/22/22 02:46 Lymph % (Auto) 38.9 % 08/22/22 02:46 Baxter % (Auto) 8.5 % 08/22/22 02:46 Eos % (Auto) 2.4 % 08/22/22 02:46 Baso % (Auto) 0.4 % 08/22/22 02:46 Neut # (Auto) 2.32 10^3/uL (1.8-7.7) 08/22/22 02:46 Lymph # (Auto) 1.8 10^3/uL (0.8-4.8) 08/22/22 02:46 Baxter # (Auto) 0.4 10^3/uL (0.2-0.9) 08/22/22 02:46 Eos # (Auto) 0.1 10^3/uL (0.0-0.8) 08/22/22 02:46 Baso # (Auto) 0.0 10^3/uL (0.0-0.1) 08/22/22 02:46 Nucleated RBC % (auto) 0 % 08/22/22 02:46 Nucleated RBCs # 0.0 /100WBC 08/22/22 02:46 Sodium 137 mmol/L (136-145) 08/22/22 02:46 Potassium 3.9 mmol/L (3.5-5.1) 08/22/22 02:46 Chloride 100 mmol/L (98-107) 08/22/22 02:46 Carbon Dioxide 25 mmol/L (22-29) 08/22/22 02:46 Anion Gap 15.9 (5-19) 08/22/22 02:46 BUN 12 mg/dL (6-20) 08/22/22 02:46 Creatinine 0.6 mg/dL (0.5-0.9) 08/22/22 02:46 GFR Calculation 123.9 mL/min (90-130) 08/22/22 02:46 Glucose 94 mg/dL (65-115) 08/22/22 02:46 Calculated Osmolality 284 mOsm/kg (285-295) L 08/22/22 02:46 Calcium 9.0 mg/dL (8.5-10.5) 08/22/22 02:46 Total Bilirubin 0.4 mg/dL (0.15-1.2) 08/22/22 02:46 AST 22 U/L (0-32) 08/22/22 02:46 ALT 16 U/L (0-33) 08/22/22 02:46 Alkaline Phosphatase 54 U/L (35-105) 08/22/22 02:46 Total Protein 7.3 g/dL (6.6-8.7) 08/22/22 02:46 Albumin 4.5 g/dL (3.5-5.2) 08/22/22 02:46 Globulin 2.8 g/dL (1.3-4.6) 08/22/22 02:46 HCG, Qual Negative (Negative) 08/22/22 02:46 Urine Color Yellow (Yellow) 08/22/22 03:27 Urine Appearance Clear (CLEAR) 08/22/22 03:27 Urine pH 5 (5-7) 08/22/22 03:27 Ur Specific Quanah 1.025 (1.005-1.030) 08/22/22 03:27 Urine Protein Neg (Negative) 08/22/22 03:27 Urine Glucose (UA) Norm (Normal) 08/22/22 03:27 Urine Ketones 1+ (Negative) H 08/22/22 03:27 Urine Blood 2+ (Negative) H 08/22/22 03:27 Urine Nitrate Negative (Negative) 08/22/22 03:27 Urine Bilirubin Neg (Negative) 08/22/22 03:27 Urine Urobilinogen Norm mg/dL (Negative) 08/22/22 03:27 Ur Leukocyte Esterase Negative (Negative) 08/22/22 03:27 Urine RBC 15-25 /hpf (0-2) H 08/22/22 03:27 Urine WBC 0-4 /hpf (0-5) H 08/22/22 03:27 Ur Squamous Epith Cells 0-4 /hpf (0-5) H 08/22/22 03:27 Amorphous Sediment 1+ /hpf 08/22/22 03:27 Urine Bacteria 1+ /hpf (NONE) H 08/22/22 03:27 Influenza Type A Ag negative (Negative) 08/22/22 02:43 Influenza Type B Ag negative (Negative) 08/22/22 02:43 SARS-CoV-2 Ag (Rapid) negative (Negative) 08/22/22 02:43 Discharge Plan Discharge Patient Disposition: Home Clinical Impression: Viral syndrome, Headache Condition: Stable Prescriptions: No Action prednisolone 15 mg/5 mL solution 20 mg PO DAILY 5 Days Qty: 40 0RF fluticasone propionate [Flonase Allergy Relief] 50 mcg/actuation spray,suspension 1 spray intranasal DAILY Qty: 16 0RF Rx Instructions: administer into each nostril Discharge Orders: Discharge ED (Routine); Ordered 08/22/22 Ordered By: Antea Muniz Referrals: Luis Enrique Simmons DO [Primary Care Provider] - 1-3 days Discharge Diet: Advance as tolerated Discharge Activity: Resume usual activity Patient Instructions: Viral Syndrome (ED), Opioid Safety, Pain Management Coding Level of Care Code ED Resource Coordinator for Nafisa Fwrossana Exam Comprehensive
--- NOTE | 2022-08-22 02:31 | XRR_ITS ---
PROCEDURE INFORMATION: Exam: XR Chest Exam date and time: 08/22/2022 2:49 AM Age: 22 years old Clinical indication: Cough and fever; Patient HX: Cough with fever TECHNIQUE: Imaging protocol: Radiologic exam of the chest. Views: 1 view. COMPARISON: CR XR chest 1V portable [id number] 01/29/2021 9:14 PM FINDINGS: Lungs: Normal lung volumes. No interstitial or air space opacities seen. Pleural spaces: No pleural effusion. No pneumothorax. Heart/Mediastinum: Normal heart size. Normal mediastinum. Midline trachea. Bones/joints: No acute osseous abnormalities seen. XR/XR chest 1V portable [id number] IMPRESSION: No acute cardiopulmonary disease on the chest radiograph.
[2022-08-22 02:53] LABS: Basophils % 0.4 %; Eosinophils # 0.1 10^3/uL (0.0-0.8); Eosinophils % 2.4 %; Hemoglobin 12.4 g/dL (11.5-15.3); Lymphocytes # 1.8 10^3/uL (0.8-4.8); Lymphocytes % 38.9 %; Mean Corpuscular Hemoglobin 27.1 pg (28.0-34.0); Mean Corpuscular Volume 87.3 fl (81-99); Mean Platelet Volume 11.4 fL (7.4-10.4); Monocytes # 0.4 10^3/uL (0.2-0.9); Monocytes % 8.5 %; Neutrophils # 2.32 10^3/uL (1.8-7.7); Neutrophils % 49.6 %; Nucleated Red Blood Cells % 0 %; Platelet Count 227 10^3/cmm (130-400); Red Blood Count 4.58 10^6/uL (4.1-5.3); Red Cell Distribution Width 13.2 % (12.1-15.1); White Blood Count 4.7 10^3/uL (4.0-10.0)
[2022-08-22] MEDS: ondansetron 2 mg/ML SDV 2 mL 4 MG IVP (02:59)
[2022-08-22] MEDS: ketorolac 30 mg/mL INJ IVP (02:59)
[2022-08-22 03:00] VITALS: BP 128/76; PULSE 72; RESP 18; O2SAT 99
[2022-08-22] MEDS: sodium chloride 0.9% 1,000 ML 999 ML IV (03:00)
[2022-08-22 03:12] LABS: Alanine Aminotransferase 16 U/L (0-33); Albumin Level 4.5 g/dL (3.5-5.2); Alkaline Phosphatase 54 U/L (35-105); Anion Gap 15.9 (5-19); Aspartate Amino Transferase 22 U/L (0-32); Blood Urea Nitrogen 12 mg/dL (6-20); Carbon Dioxide 25 mmol/L (22-29); Chloride 100 mmol/L (98-107); Globulin 2.8 g/dL (1.3-4.6); Glomerular Filtration Rate 123.9 mL/min (90-130); Glucose 94 mg/dL (65-115); Osmolality Calculated 284 mOsm/kg (285-295); Potassium 3.9 mmol/L (3.5-5.1); Sodium 137 mmol/L (136-145); Total Bilirubin 0.4 mg/dL (0.15-1.2); Total Protein 7.3 g/dL (6.6-8.7)
[2022-08-22 03:13] LABS: Influenza A by IFA negative (Negative); Influenza B by IFA negative (Negative); SARS Covid-2 Antigen negative (Negative)
[2022-08-22 03:13] LABS: HCG, Serum Qual Negative (Negative)
[2022-08-22 03:50] LABS: Bilirubin Urine Neg (Negative); Blood Urine 2+ (Negative); Glucose Urine UA Norm (Normal); Ketones Urine 1+ (Negative); Leukocyte Esterase Urine Negative (Negative); Nitrate Urine Negative (Negative); Protein Urine Neg (Negative); Specific Gravity, Urine 1.025 (1.005-1.030); Urine Appearance Clear (CLEAR); Urine Color Yellow (Yellow); Urobilinogen Urine Norm (Negative); pH Urine 5 (5-7)
[2022-08-22 03:51] LABS: Add Urine Microscopic? YES; RBC Urine 15-25 /hpf (0-2)
[2022-08-22 03:55] LABS: Add Urine Culture? No; Amorphous Sediment Urine 1+ /hpf; Bacteria Urine 1+ /hpf; Squamous Epithelial Cell Urine 0-4 /hpf (0-5); WBC Urine 0-4 /hpf (0-5)
[2022-08-22 04:12] VITALS: BP 115/76; PULSE 74; RESP 18; O2SAT 98
== END 2022-08-22 04:12 | disposition home or self-care (01) ==
PROVIDERS: Emergency Provider Emergency Medicine; PCP Family Medicine
DX: B34.9 Viral infection, unspecified (principal); R51.9 Headache, unspecified; Z20.822 Contact with and (suspected) exposure to COVID-19; F17.290 Nicotine dependence, other tobacco product, uncomplicated
CPT/HCPCS: 71045; 80053; 81001; 84703; 85025; 87426; 87804; 96361; 96374; 96375; 99284; J1885; J2405; J7030

== ENCOUNTER → 2023-03-22 10:15 | Outpatient (BNVA) | payer MEDICAID, SELFPAY | PROVIDERS: PCP Family Medicine; Visit Provider Nurse Practitioner Family | DX: J02.9 Acute pharyngitis, unspecified (principal); Z20.818 Contact with and (suspected) exposure to other bacterial communicable diseases | CPT/HCPCS: 87071; 87880 ==

== ENCOUNTER → 2023-03-24 09:47 | Outpatient (BNVA) | payer MEDICAID, SELFPAY | PROVIDERS: PCP Family Medicine; Visit Provider Nurse Practitioner Family | DX: J06.9 Acute upper respiratory infection, unspecified (principal) | CPT/HCPCS: 87426 ==

== ENCOUNTER 2023-11-10 17:33 | Emergency (ER) | payer SELFPAY ==
[2023-11-10 17:38] VITALS: BP 114/75; PULSE 75; RESP 16; TEMP 36.7; O2SAT 98
--- NOTE | 2023-11-10 20:14 | CTR_ITS ---
PROCEDURE INFORMATION: Exam: CT Head Without Contrast Exam date and time: 11/10/2023 8:19 PM Age: 23 years old Clinical indication: Pain; Headache; Additional info: CAGLE TECHNIQUE: Imaging protocol: Computed tomography of the head without contrast. Axial, coronal and sagittal reformatted images were created and reviewed. Radiation optimization: All CT scans at this facility use at least one of these dose optimization techniques: automated exposure control; mA and/or kV adjustment per patient size (includes targeted exams where dose is matched to clinical indication); or iterative reconstruction. COMPARISON: CT head wo con* [id number] 08/10/2019 9:13 PM RADIATION DOSE METRICS: Total DLP (mGy-cm): 992.78 FINDINGS: Brain: No CT evidence of acute intracranial hemorrhage or acute territorial infarction. No significant mass effect or midline shift. Basal cisterns patent. Cerebral ventricles: Normal in size and configuration. Paranasal sinuses: Unremarkable. No fluid levels. Mastoid air cells: Grossly unremarkable. Bones/joints: No acute osseous abnormality. Soft tissues: Grossly unremarkable. CT/CT head wo con* [id number] IMPRESSION: No CT evidence of acute intracranial pathology.
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
--- NOTE | 2023-11-10 20:30 | XRR_ITS ---
PROCEDURE INFORMATION: Exam: XR Thoracic Spine Exam date and time: 11/10/2023 8:47 PM Age: 23 years old Clinical indication: Pain in thoracic spine; Additional info: Injury TECHNIQUE: Imaging protocol: Radiologic exam of the thoracic spine. Views: 3 views. COMPARISON: CT cervical spin wo con* [id number] 11/10/2023 8:33 PM FINDINGS: Bones/joints: Vertebral body heights are maintained. Normal thoracic spine alignment. Soft tissues: Unremarkable. Lungs: Imaged lungs are clear. XR/XR thoracic spine 3V* [id number] IMPRESSION: No evidence of acute fracture in the thoracic spine.
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
[2023-11-10] MEDS: ketorolac 60 mg/2 mL INJ IM (20:39)
[2023-11-10] MEDS: HYDROcodone-acetaminophen 7.5-325 mg Tablet 1 TAB PO (20:39)
[2023-11-10] MEDS: ondansetron 4 MG Tablet PO (20:42)
[2023-11-10 21:56] VITALS: RESP 14
== END 2023-11-10 21:57 | disposition home or self-care (01) ==
PROVIDERS: Emergency Provider Emergency Medicine; PCP Family Medicine
DX: S09.8XXA Other specified injuries of head, initial encounter (principal); M54.2 Cervicalgia; Z87.891 Personal history of nicotine dependence; W22.8XXA Striking against or struck by other objects, initial encounter
CPT/HCPCS: 70450; 72072; 72125; 96372; 99284; J1885; Q0162

== ENCOUNTER → 2024-02-27 16:25 | Outpatient (BNVA) | payer OTHER, SELFPAY | PROVIDERS: PCP Family Medicine; Visit Provider Emergency Medicine | DX: J02.9 Acute pharyngitis, unspecified (principal); J02.0 Streptococcal pharyngitis | CPT/HCPCS: 87880 ==

== ENCOUNTER → 2024-04-08 09:12 | Outpatient (BNVA) | payer OTHER, SELFPAY | PROVIDERS: PCP Family Medicine; Visit Provider Nurse Practitioner Family | DX: R05.9 Cough, unspecified (principal) | CPT/HCPCS: 87426 ==

== ENCOUNTER → 2024-05-05 12:39 | Outpatient (BNVA) | payer OTHER, SELFPAY | PROVIDERS: PCP Family Medicine; Visit Provider Family Medicine | DX: J02.9 Acute pharyngitis, unspecified (principal) | CPT/HCPCS: 87880 ==

== ENCOUNTER 2024-07-10 01:39 | Inpatient (IN) | payer OTHER, SELFPAY ==
[2024-07-10] VITALS (7 sets, daily range): BP systolic 93–136; BP diastolic 61–85; PULSE 67–95; RESP 12–18; TEMP 36.7–37; O2SAT 97–100; BMI 25.0
--- NOTE | 2024-07-10 02:03 | W.ED.PSYCHS ---
HPI - Psych General: Chief Complaint: Psychiatric Symptoms Stated Complaint: SI Time Seen by Provider: 07/10/24 01:41 History of Present Illness: Patient presents to the ER with complaints of suicidal ideation. Patient says she has had these for about a year but is been getting worse she is now think she cannot can suppress these thoughts anymore. She plans to take all of her pills commit suicide. Patient does admit to drinking alcohol tonight as well. Patient is on citalopram 40 mg, olanzapine 2.5 mg daily. Patient is never been inpatient before but does think she needs help and will go voluntarily Related Data Previous Rx's Medication Instructions Recorded citalopram 40 mg tablet 40 mg PO DAILY #90 tabs 10/14/23 olanzapine 2.5 mg tablet 2.5 mg PO DAILY #30 tabs 05/25/24 Allergies Allergy/AdvReac Type Severity Reaction Status Date / Time amoxicillin Allergy ALGY-Rash Verified 07/10/24 01:54 Penicillins Allergy ALGY-Rash Verified 07/10/24 01:54 Review of Systems General: Reports: 10 or more systems reviewed and unremarkable except in HPI and below PFSH ED PFSH: Medical History Patient denies medical problems Neghx: htn,dm,thryoid,dvt/pe PCP: none Surgical History No history of previous surgery Family History Father Hypertension Grandfather Diabetes Maternal Hyperlipidemia maternal Grandmother Diabetes Paternal Stroke Maternal great grandmother Breast cancer Maternal great grandmother--dx age unknown Ovarian cancer maternal great grandmother--dx age unknown Uterine cancer maternal great grandmother--dx age unknown Colon cancer maternal--dx age 60 Family/Other Diabetes Paternal aunt Social History Smoking and tobacco/nicotine status: never used tobacco/nicotine Alcohol intake: current Alcohol intake frequency: holidays/special occasions only Substance/Drug Use: never Female Reproductive History: Date of last menstrual period: 07/01/24 Physical Exam Const: COMMON NORMALS: no acute distress, average body habitus, patient oriented x3, no limitations, healthy appearing, alert and well nourished HENMT: COMMON NORMALS: normocephalic, atraumatic, hearing grossly normal bilaterally, external ears normal, Normal external nose present and moist oral mucous membranes HEAD & SCALP: normocephalic and atraumatic NOSE: Normal external nose present EXTERNAL EAR: Yes external ears normal Neck/C-Spine: COMMON NORMALS: no JVD Chest: COMMONS NORMALS: normal inspection of the chest and normal palpation of entire chest wall Resp: COMMON NORMALS: normal respiratory effort, No retractions, No use of accessory muscles and clear to auscultation bilaterally AUSCULTATION: clear to auscultation bilaterally Cardio: COMMON NORMALS: no JVD, regular rate, regular rhythm, S1 normal heart sound present, S2 normal heart sound present, No gallops present (Cardio), No clicks present (Cardio), No murmurs present (Cardio) and No rub (Cardio) RATE: regular rate RHYTHM: regular rhythm HEART SOUNDS: S1 normal heart sound present and S2 normal heart sound present GI: COMMON NORMALS: Normal to inspection, nondistended, normoactive bowel sounds present, Soft to palpation, non-tender, No hepatosplenomegaly present and no masses PALPATION: Yes Soft to palpation and Yes No hepatosplenomegaly present Neuro: COMMON NORMALS: patient oriented x3 SENSORIUM/ORIENTATION: Yes alert Course Vital Signs: Vital signs: Vital Signs Temperature 98.1 F 07/10/24 01:49 Pulse Rate 87 07/10/24 01:49 Respiratory Rate 18 07/10/24 01:49 Blood Pressure 136/78 07/10/24 01:49 Pulse Oximetry 98 07/10/24 01:49 Oxygen Delivery Me thod Room Air 07/10/24 01:49 [facility] - Psych Medical Decision Making Lab work was obtained once it was reviewed patient was deemed medically stable Dr. Bazan was notified and agreed to place patient in MPU. Medical Records I reviewed the patient's medical records. Lab Data I reviewed the patient's lab results. 07/10/24 02:13 07/10/24 02:13 Laboratory Results WBC 5.71 10^3/uL (3.29-11.43) 07/10/24 02:13 RBC 4.17 10^6/uL (3.85-5.65) 07/10/24 02:13 Hgb 11.70 g/dL (11.27-16.99) 07/10/24 02:13 Hct 37.1 % (36-47) 07/10/24 02:13 MCV 89.0 fl (85-98) 07/10/24 02:13 MCH 28.1 pg (27-33) 07/10/24 02:13 MCHC 31.5 g/dL (30-55) 07/10/24 02:13 RDW 12.7 % (12.1-15.1) 07/10/24 02:13 Plt Count 333 10^3/cmm (157-399) 07/10/24 02:13 MPV 10.8 fL (7.4-10.4) H 07/10/24 02:13 Neut % (Auto) 47.8 % 07/10/24 02:13 Lymph % (Auto) 45.5 % 07/10/24 02:13 [place] % (Auto) 4.9 % 07/10/24 02:13 Eos % (Auto) 1.1 % 07/10/24 02:13 Baso % (Auto) 0.5 % 07/10/24 02:13 Neut # (Auto) 2.73 10^3/uL (1.8-7.7) 07/10/24 02:13 Lymph # (Auto) 2.6 10^3/uL (0.8-4.8) 07/10/24 02:13 [place] # (Auto) 0.3 10^3/uL (0.2-0.9) 07/10/24 02:13 Eos # (Auto) 0.1 10^3/uL (0.0-0.8) 07/10/24 02:13 Baso # (Auto) 0.0 10^3/uL (0.0-0.1) 07/10/24 02:13 Nucleated RBC % (auto) 0 % 07/10/24 02:13 Nucleated RBCs # 0.0 /100WBC 07/10/24 02:13 Sodium 142 mmol/L (136-145) 07/10/24 02:13 Potassium 4.2 mmol/L (3.5-5.1) 07/10/24 02:13 Chloride 106 mmol/L (98-107) 07/10/24 02:13 Carbon Dioxide 26 mmol/L (22-29) 07/10/24 02:13 Anion Gap 14.2 (5-19) 07/10/24 02:13 BUN 8 mg/dL (6-20) 07/10/24 02:13 Creatinine 0.6 mg/dL (0.5-0.9) 07/10/24 02:13 GFR Calculation 121.8 mL/min (90-130) 07/10/24 02:13 Glucose 101 mg/dL (65-115) 07/10/24 02:13 Calculated Osmolality 292 mOsm/kg (285-295) 07/10/24 02:13 Calcium 9.6 mg/dL (8.5-10.5) 07/10/24 02:13 Total Bilirubin 0.2 mg/dL (0.15-1.2) 07/10/24 02:13 AST 23 U/L (0-32) 07/10/24 02:13 ALT 25 U/L (0-33) 07/10/24 02:13 Alkaline Phosphatase 54 U/L (35-105) 07/10/24 02:13 Total Protein 7.2 g/dL (6.6-8.7) 07/10/24 02:13 Albumin 4.8 g/dL (3.5-5.2) 07/10/24 02:13 Globulin 2.4 g/dL (1.3-4.6) 07/10/24 02:13 HCG, Qual Negative (Negative) 07/10/24 01:48 Urine Color Yellow (Yellow) 07/10/24 01:48 Urine Appearance Clear (CLEAR) 07/10/24 01:48 Urine pH 6.0 (5-7) 07/10/24 01:48 Ur Specific [place] 1.003 (1.005-1.030) L 07/10/24 01:48 Urine Protein Negative (Negative) 07/10/24 01:48 Urine Glucose (UA) Negative (Normal) 07/10/24 01:48 Urine Ketones Negative (Negative) 07/10/24 01:48 Urine Blood Negative (Negative) 07/10/24 01:48 Urine Nitrate Negative (Negative) 07/10/24 01:48 Urine Bilirubin Negative (Negative) 07/10/24 01:48 Urine Urobilinogen 0.2 mg/dL (Negative) 07/10/24 01:48 Ur Leukocyte Esterase Negative (Negative) 07/10/24 01:48 Urine RBC 0-2 /hpf (0-2) 07/10/24 01:48 Urine WBC 0-5 /hpf (0-5) 07/10/24 01:48 Ur Squamous Epith Cells 0-5 /hpf (0-5) 07/10/24 01:48 Amorphous Sediment Not Reportable 07/10/24 01:48 Urine Bacteria None seen /hpf (NONE) 07/10/24 01:48 Hyaline Casts 0-4 /lpf H 07/10/24 01:48 Salicylates < 0.3 mg/dL (3-10) L 07/10/24 02:13 Urine Opiates Screen Negative ng/mL (Negative) 07/10/24 01:48 Acetaminophen < 5.0 ug/mL (10-30) L 07/10/24 02:13 Ur Barbiturates Screen Negative ng/mL (Negative) 07/10/24 01:48 Ur Phencyclidine Scrn Negative ng/mL (Negative) 07/10/24 01:48 Ur Amphetamines Screen Negative ng/mL (Negative) 07/10/24 01:48 U Benzodiazepines Scrn Negative ng/mL (Negative) 07/10/24 01:48 Urine Cocaine Screen Negative ng/mL (Negative) 07/10/24 01:48 U Marijuana (THC) Screen Negative ng/mL (Negative) 07/10/24 01:48 Ethyl Alcohol 139 mg/dL (0-10) H 07/10/24 02:13 All radiology interpretation(s) finalized by discharge Discharge Plan Discharge Patient Disposition: Admitted As Inpatient Clinical Impression: Suicidal ideation Condition: Stable Coding Level of Care Code ED Head Of Marketing [employer] for Nafisa Watkins
[2024-07-10 02:17] LABS: HCG Qualitative Urine. Negative (Negative)
[2024-07-10 02:26] LABS: Basophils % 0.5 %; Eosinophils # 0.1 10^3/uL (0.0-0.8); Eosinophils % 1.1 %; Hematocrit 37.1 % (36-47); Lymphocytes # 2.6 10^3/uL (0.8-4.8); Lymphocytes % 45.5 %; Mean Corpuscular HGB Conc 31.5 g/dL (30-55); Mean Corpuscular Hemoglobin 28.1 pg (27-33); Mean Platelet Volume 10.8 fL (7.4-10.4); Monocytes # 0.3 10^3/uL (0.2-0.9); Monocytes % 4.9 %; Neutrophils # 2.73 10^3/uL (1.8-7.7); Neutrophils % 47.8 %; Nucleated Red Blood Cells % 0 %; Platelet Count 333 10^3/cmm (157-399); Red Blood Count 4.17 10^6/uL (3.85-5.65); Red Cell Distribution Width 12.7 % (12.1-15.1); White Blood Count 5.71 10^3/uL (3.29-11.43)
[2024-07-10 02:45] LABS: Alanine Aminotransferase 25 U/L (0-33); Albumin Level 4.8 g/dL (3.5-5.2); Alcohol Level 139 mg/dL (0-10); Alkaline Phosphatase 54 U/L (35-105); Anion Gap 14.2 (5-19); Aspartate Amino Transferase 23 U/L (0-32); Blood Urea Nitrogen 8 mg/dL (6-20); Calcium 9.6 mg/dL (8.5-10.5); Carbon Dioxide 26 mmol/L (22-29); Chloride 106 mmol/L (98-107); Globulin 2.4 g/dL (1.3-4.6); Glomerular Filtration Rate 121.8 mL/min (90-130); Glucose 101 mg/dL (65-115); Osmolality Calculated 292 mOsm/kg (285-295); Potassium 4.2 mmol/L (3.5-5.1); Sodium 142 mmol/L (136-145); Total Bilirubin 0.2 mg/dL (0.15-1.2); Total Protein 7.2 g/dL (6.6-8.7)
[2024-07-10 02:46] LABS: Bilirubin Urine Negative (Negative); Blood Urine Negative (Negative); Glucose Urine UA Negative (Normal); Ketones Urine Negative (Negative); Leukocyte Esterase Urine Negative (Negative); Nitrate Urine Negative (Negative); Protein Urine Negative (Negative); Specific Gravity, Urine 1.003 (1.005-1.030); Urine Appearance Clear (CLEAR); Urine Color Yellow (Yellow); Urobilinogen Urine 0.2 mg/dL (Negative)
[2024-07-10 02:50] LABS: Add Urine Microscopic? YES; Bacteria Urine None Seen /hpf; Hyaline Casts Urine 0-4 /lpf; RBC Urine 0-2 /hpf (0-2); Squamous Epithelial Cell Urine 0-5 /hpf (0-5); WBC Urine 0-5 /hpf (0-5)
[2024-07-10 02:51] LABS: Acetaminophen < 5.0 ug/mL (10-30); Salicylate < 0.3 mg/dL (3-10)
[2024-07-10 02:54] LABS: Amphetamines Screen Urine Negative (Negative); Barbiturates Screen Urine Negative (Negative); Benzodiazepines Screen Urine Negative (Negative); Cocaine Screen Urine Negative (Negative); Opiate Screen Urine Negative (Negative); PCP Screen Urine Negative (Negative); THC Screen Urine Negative (Negative)
--- NOTE | 2024-07-10 02:57 | PC.NURSE ---
96 Hour Involuntary Hold Patient Rights have been read and reviewed with the patient and a copy of the same has been given to her. Site Supervising Technical Operator Mario Darby was present at the bedside at the time of presentation of Rights.
[2024-07-10] MEDS: multivitamin therapeutic Tablet 1 TAB PO (08:54)
[2024-07-10] MEDS: folic acid 1 mg Tablet PO (08:54)
[2024-07-10] MEDS: thiamine 100 mg Tablet PO (08:54)
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
[2024-07-10] MEDS: OLANZapine 5 mg TABLET 2.5 MG PO (21:05)
[2024-07-10] MEDS: escitalopram 10 mg Tablet PO (21:05)
[2024-07-10] MEDS: citalopram 20 mg Tablet 40 MG PO (21:05)
[2024-07-10] MEDS: trazodone 50 mg Tablet PO (22:48)
[2024-07-10] MEDS: hyDROXYzine 25 mg Capsule 50 MG PO (22:48)
[2024-07-11 06:00] VITALS: BP 109/72; PULSE 105; RESP 16; TEMP 36.8; O2SAT 98
[2024-07-11] MEDS: multivitamin therapeutic Tablet 1 TAB PO (08:49)
[2024-07-11] MEDS: folic acid 1 mg Tablet PO (08:49)
[2024-07-11] MEDS: thiamine 100 mg Tablet PO (08:49)
[2024-07-11 14:00] VITALS: BP 103/66; PULSE 66; RESP 16; TEMP 36.6; O2SAT 98
--- NOTE | 2024-07-11 17:07 | P.NPUPN_ITS ---
Subjective NPU 2 Subjective: 24-year-old female admitted with suicida l ideation and a blood alcohol level of 139 patient had reported that she had been depressed for years. She had reported that she had been compliant with her medication. She stated that she was no longer feeling suicidal. She had reported that there had been a recent in the family. Patient reported that she had been drinking more alcohol than she should have been and reported a family history of alcoholism. She has reported no history of alcohol-related withdrawal symptoms. Patient was compliant but isolative on the milieu. Patient had reported significant on Zyprexa over the last month. She had requested an alternative medication for insomnia. Mental Status Exam 2 MSE Comments: This is a well-nourished well-developed white female in hospital scrubs with adequate grooming and eye contact. Braces on her teeth. No abnormal movements except for mild psychomotor retardation. Cooperative with exam in mild distress. Speech was decreased in rate and normal in volume. Mood described as better. Her affect was restricted in range and mood congruent. Thought process was linear and organized. Thought content: Patient denied current suicidal or homicidal ideation, there were no delusions reported or noted, she denied any auditory or visual hallucinations. Reports a history of suicidal thoughts, including hearing voices telling her to hurt herself, but denies current suicidal ideation or intent. Denies thoughts of harming others, paranoia, or visual hallucinations. Lifelong history of social anxiety, with avoidance of crowded places and difficulty with noise. Attention and concentration were intact and memory appeared reliable but not more formally tested. She is alert and oriented x 3. Insight and judgment appear fair impulse control is limited. Vitals/I&O/Wt Last Vital Signs Temp 97.9 F 07/11/24 14:00 Pulse 66 07/11/24 14:00 Resp 16 07/11/24 14:00 BP 103/66 07/11/24 14:00 Pulse Ox 98 07/11/24 14:00 O2 Del Method Room Air 07/11/24 14:00 Weight last 48 hrs Weight 68.084 kg Weight 68.039 kg Data NPU 07/10/24 02:13 07/10/24 02:13 A&P Assessment and plan (1) Generalized anxiety disorder with panic attacks: (2) Major depressive disorder, recurrent: (3) Suicidal ideation: (4) Alcohol use disorder, moderate, dependence: Plan This is a 24-year-old white female with reported mental health history and recent increased alcohol use here secondary to concerns for safety. The patient is experiencing exacerbation of depression and anxiety, with a history of suicidal ideation and auditory self-deprecating thoughts urging self-harm, though no current intent or plan to harm self or others was reported. The patient has a longstanding history of anxiety, described as social in nature, and depression, which began at age 16 and has included depression. Recent stressors, including the of the patient?s grandmother a few weeks ago, have contributed to increased alcohol use as a coping mechanism, which the patient acknowledges is ineffective and has decided to stop. The patient has been on citalopram (40 mg) since February 2023 and olanzapine for approximately six weeks, with reported improvement but ongoing symptoms. 1. Discontinue Celexa and increase to lexapro 20mg daily with plan to increase lexapro up to 30mg at discharge. Hold zyprexa with over 15 lb weight gain in last month. 2. Continue every 15 minute checks for safety. 3. Encourage individual, group and milieu therapies. 4. Encourage sober living treatment after discharge at the highest level of care to which she is willing to commit. Involuntary Hold Information 2 96 Hour Hold: 96 Hour Involuntary Admission: Yes 96 Hour Hold Ending Date: 07/16/24 96 Hour Hold Ending Time: 00:01 Other Hold: Hold End Date: 07/16/24 Attestations NPU 2 Medical Necessity Statement*: Inpatient hospitalization is medically necessary and the clinically appropriate intervention at this time. We will monitor medications and make changes as indicated. Likely length of stay is 4-6 days. Coding Level of Care Code Acute Code for [facility] Fwd Diagnoses Generalized anxiety disorder with panic attacks F41.1; F41.0 Major depressive disorder, recurrent F33.9 Suicidal ideation R45.851 Alcohol use disorder, moderate, dependence F10.20
[2024-07-11] MEDS: hyDROXYzine 25 mg Capsule 50 MG PO (18:38)
[2024-07-11] MEDS: escitalopram 10 mg Tablet 20 MG PO (20:18)
[2024-07-11] MEDS: doxepin 25 mg Capsule PO (20:18)
[2024-07-11 22:00] VITALS: BP 106/70; PULSE 89; RESP 16; TEMP 37.1; O2SAT 99
[2024-07-12] VITALS: BP 101/59; PULSE 80; RESP 16; TEMP 36.8; O2SAT 96
[2024-07-12 04:00] VITALS: BP 103/59; PULSE 87; RESP 16; TEMP 36.7; O2SAT 99
[2024-07-12 08:00] VITALS: BP 108/74; PULSE 78; RESP 16; TEMP 36.6; O2SAT 98
[2024-07-12] MEDS: folic acid 1 mg Tablet PO (08:35)
[2024-07-12] MEDS: thiamine 100 mg Tablet PO (08:35)
[2024-07-12] MEDS: multivitamin therapeutic Tablet 1 TAB PO (08:35)
--- NOTE | 2024-07-12 08:54 | PC.NURSE ---
patient resting in bed, says she is ready to go home. Patient denies depression, anxiety, suicidal thoughts, homicidal thoughts, and hallucinations. patient reading a book. Patient calm and says she is willing to try Groups.
[2024-07-12 12:00] VITALS: BP 124/74; PULSE 78; RESP 16; TEMP 36.6; O2SAT 98
[2024-07-12 16:00] VITALS: BP 128/74; PULSE 88; RESP 16; TEMP 37; O2SAT 98
--- NOTE | 2024-07-12 16:58 | P.NPUPN_ITS ---
Subjective NPU 2 Subjective: 24-year-old female admitted with suicida l ideation and a blood alcohol level of 139 . Patient had reported improved sleep. She reported no side effects from the increase in Lexapro in the discontinuation of citalopram hydrobromide she had reported a history of depression as well. The patient had endorsed some feelings of hopelessness. She had reported low energy and low motivation. She had no prior history of alcohol-related withdrawal symptoms. She had endorsed a long history of social anxiety as well. She had reported some improvement in sleep with the doxepin. Mental Status Exam 2 MSE Comments: This is a well-nourished well-developed white female in hospital scrubs with adequate grooming and eye contact. Braces on her teeth. No abnormal movements except for mild psychomotor retardation. Cooperative with exam in mild distress. Speech was decreased in rate and normal in volume. Mood described as okay. Her affect was restricted in range and mood congruent. Thought process was linear and organized. Thought content: Patient denied current suicidal or homicidal ideation, there were no delusions reported or noted, she denied any auditory or visual hallucinations. Reports a history of suicidal thoughts, including hearing voices telling her to hurt herself, but denies current suicidal ideation or intent. Denies thoughts of harming others, paranoia, or visual hallucinations. Lifelong history of social anxiety, with avoidance of crowded places and difficulty with noise. Attention and concentration were intact and memory appeared reliable but not more formally tested. She is alert and oriented x 3. Insight and judgment appear fair. impulse control is limited. Vitals/I&O/Wt Last Vital Signs Temp 98.6 F 07/12/24 16:00 Pulse 88 07/12/24 16:00 Resp 16 07/12/24 16:00 BP 128/74 07/12/24 16:00 Pulse Ox 98 07/12/24 16:00 O2 Del Method Room Air 07/12/24 16:00 Weight last 48 hrs Weight 68.084 kg Data NPU 07/10/24 02:13 07/10/24 02:13 A&P Assessment and plan (1) Generalized anxiety disorder with panic attacks: (2) Major depressive disorder, recurrent: (3) Suicidal ideation: (4) Alcohol use disorder, moderate, dependence: Plan This is a 24-year-old white female with reported mental health history and recent increased alcohol use here secondary to concerns for safety. The patient is experiencing exacerbation of depression and anxiety, with a history of suicidal ideation and auditory self-deprecating thoughts urging self-harm, though no current intent or plan to harm self or others was reported. The patient has a longstanding history of anxiety, described as social in nature, and depression, which began at age 16 and has included depression. Recent stressors, including the of the patient?s grandmother a few weeks ago, have contributed to increased alcohol use as a coping mechanism, which the patient acknowledges is ineffective and has decided to stop. The patient has been on citalopram (40 mg) since February 2023 and olanzapine for approximately six weeks, with reported improvement but ongoing symptoms. 1. Continue Lexapro 20mg at night, with doxepin 25mg at night. 2. Continue every 15 minute checks for safety. 3. Encourage individual, group and milieu therapies. 4. Encourage sober living treatment after discharge at the highest level of care to which she is willing to commit. Involuntary Hold Information 2 96 Hour Hold: 96 Hour Involuntary Admission: Yes 96 Hour Hold Ending Date: 07/16/24 96 Hour Hold Ending Time: 00:01 Other Hold: Hold End Date: 07/16/24 Attestations NPU 2 Medical Necessity Statement*: Inpatient hospitalization is medically necessary and the clinically appropriate intervention at this time. We will monitor medications and make changes as indicated. Likely length of stay is 4-6 days. Coding Level of Care Code Acute Code for [facility] Fwd Diagnoses Generalized anxiety disorder with panic attacks F41.1; F41.0 Major depressive disorder, recurrent F33.9 Suicidal ideation R45.851 Alcohol use disorder, moderate, dependence F10.20
[2024-07-12] MEDS: doxepin 25 mg Capsule PO (20:20)
[2024-07-12] MEDS: escitalopram 10 mg Tablet 20 MG PO (20:20)
[2024-07-12 22:00] VITALS: BP 109/71; PULSE 80; RESP 17; TEMP 36.6; O2SAT 100
[2024-07-13 06:00] VITALS: BP 102/67; PULSE 87; RESP 16; TEMP 36.5; O2SAT 98
[2024-07-13] MEDS: multivitamin therapeutic Tablet 1 TAB PO (09:11)
[2024-07-13] MEDS: thiamine 100 mg Tablet PO (09:11)
[2024-07-13] MEDS: folic acid 1 mg Tablet PO (09:11)
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
[2024-07-13 14:14] VITALS: BP 102/67; PULSE 87; RESP 16; TEMP 36.5; O2SAT 98
== END 2024-07-13 15:52 | disposition home or self-care (01) | DRG 885 ==
LOC: ER 05:27 → NP 05:46
PROVIDERS: Admitting Provider Psychiatry & Neurology Psychiatry; Emergency Provider Emergency Medicine; PCP Family Medicine; Visit Provider Psychiatry & Neurology Psychiatry
DX: F33.9 Major depressive disorder, recurrent, unspecified (principal); R45.851 Suicidal ideations; Z63.4 Disappearance and death of family member; F10.20 Alcohol dependence, uncomplicated; Y90.6 Blood alcohol level of 120-199 mg/100 ml; F41.0 Panic disorder [episodic paroxysmal anxiety]; Z83.3 Family history of diabetes mellitus; Z82.3 Family history of stroke; Z80.3 Family history of malignant neoplasm of breast; Z80.41 Family history of malignant neoplasm of ovary; Z80.49 Family history of malignant neoplasm of other genital organs; Z80.0 Family history of malignant neoplasm of digestive organs
CPT/HCPCS: 36415; 80053; 80306; 80307; 81001; 81025; 85025; 97150; 97165; 99285

== ENCOUNTER 2024-08-30 11:17 | Outpatient (CLI) | payer OTHER, SELFPAY ==
[2024-08-30 12:23] LABS: Free T4 Free Thyroxine 0.97 ng/dL (0.82-1.77); T3 Free 3.1 PG/ML (2.0-4.4); Thyroid Stimulating Hormone 2.37 uIU/mL (0.27-4.20)
[2024-08-30 13:03] LABS: 25 Hydroxy Vitamin D 22 ng/mL (30-100)
== END 2024-08-30 11:18 | disposition home or self-care (01) ==
LOC: LAB 11:22
PROVIDERS: PCP Family Medicine; Visit Provider Nurse Practitioner Psychiatric/Mental Health
DX: Z03.89 Encounter for observation for other suspected diseases and conditions ruled out (principal)
CPT/HCPCS: 36415; 82306; 84439; 84443; 84481

== ENCOUNTER → 2024-11-21 12:31 | Outpatient (BNVA) | payer OTHER, SELFPAY | PROVIDERS: PCP Family Medicine; Visit Provider Registered Nurse Neonatal Intensive Care | DX: J02.9 Acute pharyngitis, unspecified (principal) | CPT/HCPCS: 87880 ==

== ENCOUNTER 2025-01-18 19:30 | Emergency (ER) | payer OTHER, SELFPAY ==
--- NOTE | 2025-01-18 19:33 | XRR_ITS ---
PROCEDURE INFORMATION: Exam: XR Left Wrist Exam date and time: 01/18/2025 7:43 PM Age: 24 years old Clinical indication: Injury or trauma; Fall; Blunt trauma (contusions or hematomas); Wrist; Left TECHNIQUE: Imaging protocol: Radiologic exam of the left wrist. Views: 3 or more views. COMPARISON: No relevant prior studies available. FINDINGS: Bones/joints: Normal. Soft tissues: Normal. XR/XR wrist LT min 3V* [id number] IMPRESSION: No acute findings.
[2025-01-18 19:50] VITALS: BP 114/73; PULSE 65; RESP 17; TEMP 37.3; O2SAT 98; BMI 24.3
[2025-01-18 20:15] VITALS: BP 113/67; PULSE 76; O2SAT 96
--- NOTE | 2025-01-18 20:15 | ED_ITS ---
HPI - Extremity Problem General: Chief complaint: Extremity Injury, Upper Stated complaint: Left Wrist Injury Time Seen by Provider: 01/18/25 19:31 Source: patient Mode of arrival: ambulatory Limitations: no limitations History of Present Illness: 24-year-old female states she fell down 4-5 stairs just prior to arrival. States she had landed on her left wrist has pain over the anterior portion of h er left wrist rates pain a 5 out of 10 is worse with movement and palpation denies any other injuries denies any head. Associated symptoms: Deny chest pain, fever(s) or rash Related Data Previous Rx's ?Medication ?Instructions ?Recorded hydroxyzine HCl 25 mg tablet 25 mg PO BID PRN anxiety 15 days 08/30/24 #30 tabs escitalopram oxalate 20 mg tablet 20 mg PO DAILY #90 t abs 01/13/25 azithromycin 500 mg tablet 500 mg PO DAILY 5 days #5 t abs 01/16/25 fluticasone propionate 50 1 spray intranasal BID PRN 0 01/16/25 mcg/actuation nasal congestion #16 grams spray,suspension (Flonase Allergy Relief) naproxen 500 mg tablet (Naprosyn) 500 mg PO BID PRN pa in #20 tabs 01/18/25 Allergies Allergy/AdvReac Type Severity Reaction Status Date / Time amoxicillin Allergy ALGY-Rash Verified 01/16/25 13:54 Penicillins Allergy ALGY-Rash Verified 01/16/25 13:54 Review of Systems Const: Denies: fever(s), chills, body aches or change in appetite ENMT: Denies: throat pain or dental pain Card: Denies: chest pain Resp: Denies: dyspnea GI: Denies: abdominal pain, nausea, vomiting or diarrhea Musc: Reports: extremity pain; Denies: neck pain or back pain Skin/Breast: Denies: rash Neuro: Denies: headache(s) PFSH ED PFSH: Medical History Recurrent major depressive disorder in partial remission Psychiatric care Patient denies medical problems Neghx: htn,dm,thryoid,dvt/pe PCP: none Surgical History No history of previous surgery Family History Father Hypertension Grandfather Diabetes Maternal Hyperlipidemia maternal Grandmother Diabetes Paternal Stroke Maternal great grandmother Breast cancer Maternal great grandmother--dx age unknown Ovarian cancer maternal great grandmother--dx age unknown Uterine cancer maternal great grandmother--dx age unknown Colon cancer maternal--dx age 60 Family/Other Diabetes Paternal aunt Social History Smoking and tobacco/nicotine status: never used tobacco/nicotine Alcohol intake: current Alcohol intake frequency: holidays/special occasions only Substance/Drug Use: never Physical Exam Const: COMMON NORMALS: no acute distress, patient oriented x3 and healthy appearing HENMT: COMMON NORMALS: normocephalic and atraumatic HEAD & SCALP: normocephalic and atraumatic Eye: COMMON NORMALS: EOMs intact bilaterally and conjunctivae normal CONJUNCTIVA: Yes conjunctivae normal Neck/C-Spine: COMMON NORMALS: full ROM and supple Chest: COMMONS NORMALS: normal inspection of the chest Resp: COMMON NORMALS: normal respiratory effort Extremity: COMMON NORMALS: full ROM NARRATIVE EXTREMITY EXAM: Tenderness to left wrist no obvious deformity no tenderness in anatomic snuffbox Neuro: COMMON NORMALS: patient oriented x3, moves all extremities and no focal motor deficits Psych: COMMON NORMALS: mental status grossly normal, Normal thought process present and cooperative THOUGHT PROCESS: Normal thought process present Skin: COMMON NORMALS: no rashes or lesions noted and no wounds GENERAL SKIN EXAM: no rashes or lesions noted Course Vital Signs: Vital signs: Vital Signs Temperature 99.2 F 01/18/25 19:50 Pulse Rate 76 01/18/25 20:15 Respiratory Rate 17 01/18/25 19:50 Blood Pressure 113/67 01/18/25 20:15 Pulse Oximetry 96 01/18/25 20:15 Oxygen Delivery Me thod Room Air 01/18/25 20:15 MDM - Extremity (Nontraumatic) Medical Decision Making Patient presents here for left wrist sprain x-ray shows no fracture will Son wrap patient stable for discharge follow-up PCP return if worsening she understands agrees to plan Medical Records I reviewed the patient's medical records. XR interpretation done by ED provider, pending radiology final review ED provider radiology interpretation(s): xr l wrist: no acute fx Discharge Plan Discharge Patient Disposition: Home Clinical Impression: Sprain and strain of wrist Condition: Stable Prescriptions: New naproxen [Naprosyn] 500 mg tablet 500 mg PO BID PRN (Reason: pain) Qty: 20 0RF No Action hydroxyzine HCl 25 mg tablet 25 mg PO BID PRN (Reason: anxiety) 15 Days Qty: 30 2RF Rx Instructions: Take one tablet during the day and at bedtime, if needed for anxiety; stop doxepin escitalopram oxalate 20 mg tablet 20 mg PO DAILY Qty: 90 0RF Rx Instructions: Take one tablet daily fluticasone propionate [Flonase Allergy Relief] 50 mcg/actuation spray,suspension 1 spray intranasal BID PRN (Reason: congestion) Qty: 16 0RF Rx Instructions: administer into each nostril azithromycin 500 mg tablet 500 mg PO DAILY 5 Days Qty: 5 0RF Discharge Orders: Discharge ED (Routine); Ordered 01/18/25 Ordered By: Aneta Muniz Referrals: Luis Enrique Simmons DO [Primary Care Provider, Family Practice] - 4-7 days Discharge Diet: Advance as tolerated Discharge Activity: Resume usual activity Patient Instructions: Wrist Sprain (ED) Print Language: Bhutanese Coding Level of Care Code ED Interlacer for Nafisa Watkins
[2025-01-18 20:32] VITALS: BP 113/62; PULSE 68; O2SAT 95
== END 2025-01-18 20:34 | disposition home or self-care (01) ==
PROVIDERS: Emergency Provider Emergency Medicine; PCP Family Medicine
DX: S63.502A Unspecified sprain of left wrist, initial encounter (principal); W10.9XXA Fall (on) (from) unspecified stairs and steps, initial encounter
CPT/HCPCS: 73110; 99283

== ENCOUNTER → 2025-03-08 13:35 | Outpatient (BNVA) | payer OTHER, SELFPAY | PROVIDERS: PCP Family Medicine; Visit Provider Nurse Practitioner | DX: R39.9 Unspecified symptoms and signs involving the genitourinary system (principal) | CPT/HCPCS: 81000; 87086 ==

== ENCOUNTER → 2025-06-13 14:28 | Outpatient (BNVA) | payer OTHER, SELFPAY | PROVIDERS: PCP Family Medicine; Visit Provider Emergency Medicine | DX: J02.9 Acute pharyngitis, unspecified (principal) | CPT/HCPCS: 87071; 87880 ==